=== PATIENT | female | born 1985 | race African-American/Black ===

== ENCOUNTER 2020-12-04 11:32 | Emergency (ER) | payer MEDICAID, SELFPAY ==
[2020-12-04 11:49] VITALS: BP 102/53; PULSE 79; RESP 16; TEMP 36.6; O2SAT 100
--- NOTE | 2020-12-04 12:30 | DI.US_ITS ---
EXAM: US PELVIS TRANSVAGINAL CLINICAL HISTORY: pelvic mass TECHNIQUE: Transabdominal and transvaginal imaging was performed using standard protocol. COMPARISON: No exams were available for comparison FINDINGS: KIDNEYS: Kidneys are symmetric in size. No evidence of renal calculi. No evidence of hydronephrosis. No renal mass or cyst identified. UTERUS: Retroverted. 13.4 by 10.8 by 10.9 cm.. Endometrium: 11 millimeters. Homogeneous. Myometrium: Large fibroid at the fundus measuring 10.7 x 9.3 x 10.9 cm. It contains vascularity. Sm all lower uterine segment fibroids are seen, both anteriorly and posteriorly. The anterior fibroid m easures 1.5 cm in greatest dimension. The posterior fibroid measures 2.6 cm in greatest dimension. Cervix: Unremarkable. OVARIES: Right: Cyst or mass: None. Left: Cyst or mass: None. DOPPLER: Color: Symmetric and uniform flow to both ovaries. No hyperemia. Duplex: Normal ovarian arterial waveforms visualized. CUL-DE-SAC: Free fluid: None. IMPRESSION: Large fundal fibroid, measuring nearly 11 cm in diameter.. Unremarkable bilateral ovaries. DATA REPOSITORY:
[2020-12-04 12:47] LABS: Abs Immature Grans 0.01 10^3/uL (0.0-0.06); Absolute Basophil Count 0.03 10^3/uL (0.0-0.2); Absolute Eosinophil Count 0.12 10^3/uL (0.0-0.7); Absolute Lymphocyte Count 1.67 10^3/uL (1.2-3.4); Absolute Neutrophil Count 1.32 10^3/uL (1.2-6.7); Basophils % 0.8; Eosinophils % 3.4; HCT 36.5 % (36.0-46.0); HGB 12.2 g/dL (11.2-15.7); Immature Grans % 0.3; MCH 30.8 pg (27.0-33.0); MCHC 33.4 % (32.0-36.0); MCV 92.2 fL (80-95); MPV 9.7 fL (8.0-11.0); Monocytes % 11.3; Neutrophils % 37.2; Nucleated RBC 0 %; Platelet Count 256 10^3/uL (130-400); RBC 3.96 10^6/uL (3.93-5.22); RDW 11.7 % (11.7-14.6); RDW-SD 39.9 fL; WBC 3.55 10^3/uL (4.4-10.8)
[2020-12-04 13:04] LABS: Bilirubin Negative (Negative); Blood Negative (Negative); Clarity Clear (Clear); Glucose Negative (Negative); Ketones Negative (Negative); Leukocyte Esterase Negative (Negative); Nitrite Negative (Negative); Specific Gravity >= 1.030 (1.005-1.025); Urobilinogen 0.2 EU/dL (Up TO 0.2)
[2020-12-04 13:07] LABS: ALT 26 U/L (14-59); AST 21 U/L (15-37); Albumin 3.6 g/dL (3.4-5.0); Alkaline Phosphatase 48 U/L (46-116); Anion Gap 6.4 mmol/L (3-11); BUN 13 mg/dL (7-18); Bilirubin, Total 0.5 mg/dL (0.2-1.0); CO2 29.6 mmol/L (21.0-32.0); CREATININE 0.8 mg/dL (0.55-1.02); Calcium 8.8 mg/dL (8.5-10.1); Chloride 104 mmol/L (98-107); Glucose 113 mg/dL (74-106); Potassium 4.1 mmol/L (3.5-5.1); Sodium 140 mmol/L (136-145); Total Protein 7.5 g/dL (6.4-8.2)
--- NOTE | 2020-12-04 14:46 | W.ED.GENAD ---
Discharge Plan Disposition Patient Disposition: HOME Condition: Good Discharge Details Clinical Impression: Fibroid, uterine Primary Care Provider: TARA SALAS ED Provider: Malka Orr Home Meds and New Rx's Prescriptions: No Action No Known Home Meds RF: 0 Discharge Instructions Additional Instructions: Please follow-up with the crisis manager listed You will be contacted to set up an appointment for primary care physician as well You have a large uterine fibroid, the crisis manager will give you options about management Ibuprofen and Tylenol for pain control Please return earlier should you have new or worsening complaints Referrals: Madeleine Benites DO [OSTEOPATHIC DOCTOR] - Discharge Data Discharge Date/Time-TO BE ENTERED AT DEPARTURE: 12/04/20 15:22 Medical Decision Making Ultrasound findings per radiology show evidence of fibroid tumors Patient made aware of need for follow-up with gynecology and given referral Ibuprofen and Tylenol for pain Negative test, diagnostic labs and urinalysis reassuring Given low threshold to return should she have new or worsening complaints Differential Diagnosis Differential Diagnosis: Fibroid uterus, ovarian tumor malignant, , UTI Medical Records Medical records reviewed: Yes I reviewed the patient's medical records. Lab Data Lab results reviewed: Yes I reviewed the patient's lab results. HPI This 35-year-old female presents with report of large mass in her uterus. She denies any abdominal pain currently, nausea, vomiting, dizziness. She denies any urinary symptoms. Denies any risk of sexually transmitted disease. Has not been sexually active for the past 3 years reportedly. Denies any additional complaints at this time. General Date/Time Provider Initiated Documentation: 12/04/20 12:22. Related Data Home Medications Medication Instructions Recorded Confirmed Unknown [No Known Home Meds] 12/04/20 12/04/20 Allergies Allergy/AdvReac Type Severity Reaction Status Date / Time No Known Allergies Allergy Unverified 12/04/20 11:48 General Stated Complaint: Abd Prob ABHIJIT: 3 Review of Systems Narrative: Review of systems negative x7 aside from where indicated in HPI PFSH Social History Smoking/Tobacco Use Status: Never Smoking risk assessment performed?: Yes Alcohol Intake: current Alcohol Intake frequency: a few times a week Details: CBD oil orally daily Do you feel safe at home: Yes Do you feel safe in your relationship?: Yes Exam Const Orientation: alert and oriented x3 HENMT Mouth: oral mucosae normal GI Other: Mass palpated in pelvic region, no visible erythema or rashes, no CVA tenderness No rebound or guarding Skin General skin exam: no rashes or lesions noted Neuro General: patient alert and patient oriented x3 Course Vital Signs Vital signs: Vital Signs Temperature 36.6 C 12/04/20 11:49 Pulse 79 12/04/20 11:49 Respiratory Rate 16 12/04/20 11:49 Blood Pressure 102/53 L 12/04/20 11:49 Pulse Oximetry 100 12/04/20 11:49 Temperature 36.6 C 12/04/20 11:49 Temperature Source Temporal Artery Scan 12/04/20 11:49 Pulse 79 12/04/20 11:49 Respiratory Rate 16 12/04/20 11:49 Respiratory Effort Non-Labored 12/04/20 11:53 Blood Pressure 102/53 L 12/04/20 11:49 Blood Pressure Position Sitting 12/04/20 11:49 Pulse Oximetry 100 12/04/20 11:49 Oxygen Delivery Method Room Air 12/04/20 11:49 Oxygen Flow Rate 0 12/04/20 11:49 Pain Level 5 12/04/20 11:55 Lab/Test Results Lab/Test Results: Laboratory Tests Range/Units 12/04/20 12/04/20 12/04/20 12:40 12:40 12:45 WBC (4.4-10.8) 10^3/uL 3.55 L RBC (3.93-5.22) 10^6/uL 3.96 Hgb (11.2-15.7) g/dL 12.2 Hct (36.0-46.0) % 36.5 MCV (80-95) fL 92.2 MCH (27.0-33.0) pg 30.8 MCHC (32.0-36.0) % 33.4 RDW (11.7-14.6) % 11.7 Plt Count (130-400) 10^3/uL 256 MPV (8.0-11.0) fL 9.7 Immature Gran % 0.3 Neutrophils % 37.2 Lymphocytes % 47.0 Monocytes % 11.3 Eosinophils % 3.4 Basophils % 0.8 Nucleated RBC % % 0 Absolute Neutrophils (1.2-6.7) 10^3/uL 1.32 Absolute Lymphocytes (1.2-3.4) 10^3/uL 1.67 Absolute Monocytes (0.1-0.8) 10^3/uL 0.40 Absolute Eosinophils (0.0-0.7) 10^3/uL 0.12 Absolute Basophils (0.0-0.2) 10^3/uL 0.03 Sodium (136-145) mmol/L 140 Potassium (3.5-5.1) mmol/L 4.1 Chloride (98-107) mmol/L 104 Carbon Dioxide (21.0-32.0) mmol/L 29.6 Anion Gap (3-11) mmol/L 6.4 BUN (7-18) mg/dL 13 Creatinine (0.55-1.02) mg/dL 0.8 Estimated GFR/1.73 m2 (mL/min/1.73m2) >= 60.00 Glucose (74-106) mg/dL 113 H Calcium (8.5-10.1) mg/dL 8.8 Total Bilirubin (0.2-1.0) mg/dL 0.5 AST (15-37) U/L 21 ALT (14-59) U/L 26 Alkaline Phosphatase (46-116) U/L 48 Total Protein (6.4-8.2) g/dL 7.5 Albumin (3.4-5.0) g/dL 3.6 Urine Color (Yellow) Yellow Urine Clarity (Clear) Clear Urine pH (5-8) 7.0 Ur Specific [place] (1.005-1.025) >= 1.030 H Urine Protein (Negative) mg/dL Negative Urine Ketones (Negative) mg/dL Negative Urine Blood (Negative) Negative Urine Nitrite (Negative) Negative Urine Bilirubin (Negative) Negative Urine Urobilinogen (Up TO 0.2) EU/dL 0.2 Ur Leukocyte Esterase (Negative) Negative Urine Glucose (Negative) mg/dL Negative POC- Test(urine) Negative
[2020-12-04 15:23] VITALS: BP 102/53; PULSE 79; RESP 16; TEMP 36.6; O2SAT 100
--- NOTE | 2020-12-05 10:51 | PDOC.ERCMPRO ---
- If Service Date Differs Date of service: 12/05/20 Time of Service: 10:51 Care Management Progress Note Ronit is seen in the ED for uterine fibroids. ED provider requests that CM assist patient in establishing care with a PCP, but a review of her chart reveals that Ronit is already established at [facility] with MAIKEL Del Valle. CM contacts the [facility] to ensure patient is still an active patient at their facility and is informed that she is active and already has a follow up appointment scheduled.
== END 2020-12-04 15:22 | disposition home or self-care (01) ==
PROVIDERS: Emergency Provider Physician Assistant; PCP Registered Nurse
DX: R19.03 Right lower quadrant abdominal swelling, mass and lump (principal); D25.9 Leiomyoma of uterus, unspecified
CPT/HCPCS: 36415; 80053; 81025; 99284; 76830; 76856; 81003; 85025; 99283

== ENCOUNTER 2021-09-21 16:20 | Emergency (ER) | payer MEDICAID, SELFPAY ==
--- NOTE | 2021-09-21 16:15 | RT.EKG_ITS ---
APPROVED REPORT Exam: Resting ECG Reason for Exam: CHEST PAIN Patient Location: E HR:68 bpm ECG Measurements Heart Rate 68 AXIS NC 156 P 30 QRSd 76 QRS 22 QT 373 T 21 QTc 397 Conclusion Sinus rhythm...normal P axis, V-rate 60- 99
[2021-09-21 16:24] VITALS: BP 97/77; PULSE 74; RESP 16; TEMP 36.7; O2SAT 99
--- NOTE | 2021-09-21 16:30 | DI.CT_ITS ---
Exam(s) CT CERVICAL SPINE WO EXAM: CT CERVICAL SPINE WO CLINICAL HISTORY: Neck pain with radiculopathy. TECHNIQUE: Imaging Protocol: Axial computed tomography images with coronal and sagittal reformatted images were created and reviewed COMPARISON: No exams were available for comparison FINDINGS: CERVICAL SPINE: There is no evidence of fracture nor listhesis. No significant prevertebral soft tissue swelling. Mild disc space narrowing and anterior osteophytes noted at C5-6 level. There is no significant facet joint malalignment. No significant osseous lesions evident. IMPRESSION: No evidence of cervical spine fracture, malalignment, nor acute compromise of the cervical spinal can al. RADIATION DOSE DELIVERED: 500.79mGy.cm Total DLP DATA REPOSITORY: All CT scans at this facility are submitted to the National Radiology Data Registry (NRDR) Dose Index Registry (DIR) with the [employer] ([employer]). RADIATION OPTIMIZATION: All CT scans at this facility use at least one of these dose optimization te chniques: automated exposure control; mA and/or kV adjustment per patient size (includes targeted exa ms where dose is matched to clinical indication); or iterative reconstruction.
--- NOTE | 2021-09-21 16:30 | DI.CT_ITS ---
Exam(s) CT THORACIC LUMBAR SPINE WO EXAM: CT THORACIC LUMBAR SPINE WO CLINICAL HISTORY: Back Pain. TECHNIQUE: Imaging Protocol: Axial computed tomography images with coronal and sagittal reformatted images were created and reviewed. CONTRAST MATERIAL: Intravenous: Omnipaque 350 Contrast volume:structured data in ml Contrast route:I V - Oral: yes / no COMPARISON: No exams were available for comparison FINDINGS: THORACIC SPINAL COLUMN: No fractures. No listhesis. No osseous lesions. No facet malalignment. No scoliosis. LUMBOSACRAL SPINAL COLUMN: No evidence of fracture or listhesis. No pars defects. No disc space marianna rowing. Bone density normal. No osseous lesions. Mild-moderate facet arthropathy is noted at L5-S1 level. No significant central spinal canal stenosis. No significant foraminal stenosis. IMPRESSION: No fractures evident in the thoracic and lumbar spinal columns. No facet malalignment. No listhesis . RADIATION DOSE DELIVERED: 735.26mGy.cm Total DLP DATA REPOSITORY: All CT scans at this facility are submitted to the National Radiology Data Registry (NRDR) Dose Index Registry (DIR) with the [employer] (ACR). RADIATION OPTIMIZATION: All CT scans at this facility use at least one of these dose optimization te chniques: automated exposure control; mA and/or kV adjustment per patient size (includes targeted exa ms where dose is matched to clinical indication); or iterative reconstruction.
[2021-09-21 16:36] VITALS: RESP 16
--- NOTE | 2021-09-21 16:40 | W.ED.GENAD ---
Discharge Plan Disposition Patient Disposition: HOME Condition: Stable Discharge Details Clinical Impression: Sprain of cervical neck, Acute costochondritis Primary Care Provider: Donna Luna ED Provider: Natalie Baron Home Meds and New Rx's Prescriptions: New cyclobenzaprine 10 mg tablet 10 mg PO TID PRN (Reason: muscle spasm) Qty: 10 RF: 0 No Action ibuprofen [IBU] 800 mg tablet 800 mg PO Q8H PRN (Reason: pain) Qty: 30 RF: 1 Discharge Instructions Instructions: Costochondritis (ED), Cervical Sprain (ED) Additional Instructions: Today the EKG shows no acute abnormality of your heart. CT of your neck, thoracic and lumbar spine are all within normal limits. You do have some degenerative changes on T9 and 10, you also have some lumbar degenerative changes at L4 and L5. There does not appear that you have any evidence for spinal canal stenosis. Alternate ice and heat. Take the muscle relaxers up to 3 times daily as needed. A prescription was for muscle relaxers to the pharmacy we have on file for you. Please take Tylenol or Ibuprofen with food every 4-6 hours as needed for pain and swelling. Follow up with primary care provider in 3-5 days. Return to ED sooner if any worsening or concerns. Increase oral fluids. Stand Alone Forms: Work Release Referrals: Donna Luna, [employer] [Primary Care Provider] - 3 days Medical Decision Making 36-year-old female presents to the ER with chief complaint of neck and back pain after some heavy lifting yesterday. Patient states that she is moving and was doing some heavy lifting up 2 flights of stairs. She reports arm and hand numbness this morning which has resolved. She has increased pain with flexion of her neck and rotation. She denies any loss of bowel or bladder control. She is also complaining of anterior chest pain and feels like there is a knot in my throat. She denies any fever or cough. She is vaccinated for COVID. She did take some ibuprofen at approximately 12:00 this afternoon which did little to nothing to help her symptoms. She is tearful. Past medical history includes uterine fibroid. EKG shows normal sinus rhythm. EKG was reviewed by Dr. Emmanuel ER attending, Discussed CT results with patient who verbalized understanding. Patient reevaluation, she reports that she still having pain. She is concerned about her throat pain. Did offer a rapid strep swab which she agreed to due to the erythema of her posterior oropharynx. Discussed home care including alternating ice and heat, we will give her lidocaine patch and I will send her with some muscle relaxers to go home with. She verbalizes understanding. Exam: CT Cervical Spine Without Contrast FINDINGS: Bones/joints: No acute fracture. Normal alignment. Discs/Spinal canal/Neural foramina: Endplate osteophyte formation and disc space narrowing at C5-C6. Lungs: Lung apices are normal. Soft tissues: Unremarkable. IMPRESSION: No acute findings Exam: CT Thoracic Spine Without Contrast FINDINGS: Vertebrae: No acute fracture. Normal alignment. Diminutive ribs at T12. Degenerative arthritis in the right costovertebral junction of T9 and T10. Discs/Spinal canal/Neural foramina: No significant disc protrusion. No severe spinal canal stenosis. No significant neural foraminal narrowing. Soft tissues: Unremarkable. IMPRESSION: No acute findings Exam: CT Lumbar Spine Without Contrast COMPARISON: CT CERVICAL SPINE WO 09/21/2021 5:12 PM FINDINGS: Vertebrae: No acute fracture. Normal alignment. Four lumbar type vertebral bodies. L5 is sacralized. Moderate facet arthropathy at L4-L5, worse on left. Discs/Spinal canal/Neural foramina: No significant disc protrusion. No severe spinal canal stenosis. No significant neural foraminal narrowing. Soft tissues: Unremarkable. IMPRESSION: No acute findings. Degenerate arthritis lower lumbar facets. Four lumbar type vertebral bodies. Rapid strep negative. Patient sent home with Flexeril and was given a lidocaine patch prior to discharge. Instructed on home care. This text was generated using Omnidroneation system, please disregard any oddities of phrase or misspellings. HPI General Mode of arrival: ambulatory. Date/Time Provider Initiated Documentation: 09/21/21 16:20. Limitations to Documentation: no limitations. Information obtained by: patient, RN notes reviewed and old records reviewed. HPI Narrative: 36-year-old female presents to the ER with chief complaint of neck and back pain after some heavy lifting yesterday. Patient states that she is moving and was doing some heavy lifting up 2 flights of stairs. She reports arm and hand numbness this morning which has resolved. She has increased pain with flexion of her neck and rotation. She denies any loss of bowel or bladder control. She is also complaining of anterior chest pain and feels like there is a knot in my throat. She denies any fever or cough. She is vaccinated for COVID. She did take some ibuprofen at approximately 12:00 this afternoon which did little to nothing to help her symptoms. She is tearful. Past medical history includes uterine fibroid. Related Data Home Medications Medication Instructions Recorded Confirmed ibuprofen 800 mg tablet 800 mg PO Q8H PRN #30 tab 12/20/20 09/21/21 cyclobenzaprine 10 mg PO TID PRN #10 tab 09/21/21 Previous Rx's Medication Instructions Recorded ibuprofen 800 mg tablet 800 mg PO Q8H PRN #30 tab 12/20/20 cyclobenzaprine 10 mg PO TID PRN #10 tab 09/21/21 Allergies Allergy/AdvReac Type Severity Reaction Status Date / Time No Known Allergies Allergy Unverified 09/21/21 16:29 General Stated Complaint: GenMedical ABHIJIT: 4 Review of Systems All systems reviewed & are unremarkable except as noted in HPI and below PFSH All Active Problems (Updated 09/21/21 @ 18:14 by Natalie Baron) Fibroid, uterine (Acute) Sprain of cervical neck (Acute) Acute costochondritis (Acute) Social History Smoking/Tobacco Use Status: Former Tobacco Use Smoking risk assessment performed?: Yes Alcohol Intake: current Alcohol Intake frequency: a few times a week Drug use: Daily Substance use type: marijuana Details: CBD oil orally daily Do you feel safe at home: Yes Do you feel safe in your relationship?: Yes Female Reproductive History Menstrual Age of Menarche: 14 Duration of menses: 6-7 days control method: none History History 1 Para 1 Hx # Term Pregnancies 1 Multiple births Hx # Pregnancies Ectopic pregnancies AB induced Hx Number of Living Children 1 AB spontaneous Exam Narrative Exam Narrative: Constitutional: Alert and oriented x3. Appears stated age. Normal body habitus. Head: Normocephalic, no trauma. Eyes: Pupils PERRL, Red reflex noted, EOM's intact. Eyelids symmetrical without lesions, discharge, or swelling. ENT: Bilateral TM's WNL, External ear normal to inspection, no mastoid TTP, swelling, or erythema, Nasal turbinates WNL, no nasal discharge. Normal dentition, Posterior pharynx erythemic, no exudate. Chest: RRR, Normal S1, S2, distal pulses intact. Resp: Lungs clear to auscultation bilaterally, no wheezes, rales, or rhonchi. Abdomen: Soft, non-distended, Normoactive bowel sounds all 4 quads. Musculoskeletal: Normal gait, 5/5 strength to all four extremities. Midline C-spine tenderness with palpation, midline T-spine tenderness with palpation. She reports that she has a bulging disc in her lower lumbar spine. Skin: No suspicious rashes or lesions. Capillary refill less than 2 sec. Neurologic: Cranial nerves II-XII intact. Alert and oriented x 3. Motor: No deficits noted. Sensory: Intact bilaterally all 4 extremities. Reflexes: DTR's intact bilaterally.. Hematologic/Lymphatic: No ecchymosis, no lymphadenopathy. Course Vital Signs Vital signs: Vital Signs Temperature 36.7 C 09/21/21 16:24 Pulse 74 09/21/21 16:24 Respiratory Rate 16 09/21/21 16:24 Blood Pressure 97/77 L 09/21/21 16:24 Pulse Oximetry 99 09/21/21 16:24 Temperature 36.7 C 09/21/21 16:24 Temperature Source Skin 09/21/21 16:24 Pulse 74 09/21/21 16:24 Respiratory Rate 16 09/21/21 16:24 Respiratory Effort 09/21/21 16:30 Blood Pressure 97/77 L 09/21/21 16:24 Pulse Oximetry 99 09/21/21 16:24 Oxygen Delivery Method Room Air 09/21/21 16:24 Oxygen Flow Rate 0 09/21/21 16:24 Pain Level 10 09/21/21 16:24 PAWSS Have you Been Recently Intoxicated or Drunk Within the Last 30 days?: No Have you Ever Experienced Previous Episodes of Alcohol Withdrawal?: No Have you ever Experienced Withdrawal Seizures?: No Have you ever Experienced Delirium Tremens(DT)s?: No Have you ever undergone Alcohol Rehabilitation Treatment (i.e, inpt ot outpatient treatment programs)?: No Have you ever Experienced Blackouts?: No Have you ever Combined Alcohol with other Downers within the last 90 days?: No Have you ever Combined Alcohol with any other Substance of Abuse during the last 90 days?: No Evidence of Increased Autonomic Activity (i.e. HR>120, tremor, sweating, agitation, nausea)?: No Result: 0
[2021-09-21] MEDS: predniSONE 20 MG TAB 60 MG PO (16:43)
[2021-09-21] MEDS: diazePAM 2 MG TAB PO (16:44)
[2021-09-21] MEDS: Ibuprofen 600 MG TAB PO (16:44)
[2021-09-21 17:03] LABS: Bilirubin Negative (Negative); Blood Negative (Negative); Clarity Clear (Clear); Glucose Negative (Negative); Ketones 15 mg/dL (Negative); Leukocyte Esterase Negative (Negative); Nitrite Negative (Negative); Specific Gravity >= 1.030 (1.005-1.025); Urobilinogen 0.2 EU/dL (Up TO 0.2); pH 6.5 (5-8)
--- NOTE | 2021-09-21 17:32 | DI.VRAD_ITS ---
PROCEDURE INFORMATION: Exam: CT Cervical Spine Without Contrast Exam date and time: 09/21/2021 4:41 PM Age: 36 years old Clinical indication: Other: Neck pain with radiculopathy TECHNIQUE: Imaging protocol: Computed tomography images of the cervical spine without contrast. Radiation optimization: All CT scans at this facility use at least one of these dose optimization techniques: automated exposure control; mA and/or kV adjustment per patient size (includes targeted exams where dose is matched to clinical indication); or iterative reconstruction. COMPARISON: No relevant prior studies available. FINDINGS: Bones/joints: No acute fracture. Normal alignment. Discs/Spinal canal/Neural foramina: Endplate osteophyte formation and disc space narrowing at C5-C6. Lungs: Lung apices are normal. Soft tissues: Unremarkable. IMPRESSION: No acute findings Dictated and Authenticated by: Rhiannon Marrufo MD. Ordering:ANA LUISA Estrada MD
--- NOTE | 2021-09-21 17:40 | DI.VRAD_ITS ---
PROCEDURE INFORMATION: Exam: CT Thoracic Spine Without Contrast Exam date and time: 09/21/2021 4:41 PM Age: 36 years old Clinical indication: Other: Back pain TECHNIQUE: Imaging protocol: Computed tomography images of the thoracic spine without contrast. Radiation optimization: All CT scans at this facility use at least one of these dose optimization techniques: automated exposure control; mA and/or kV adjustment per patient size (includes targeted exams where dose is matched to clinical indication); or iterative reconstruction. COMPARISON: CT CERVICAL SPINE WO 09/21/2021 5:12 PM FINDINGS: Vertebrae: No acute fracture. Normal alignment. Diminutive ribs at T12. Degenerative arthritis in the right costovertebral junction of T9 and T10. Discs/Spinal canal/Neural foramina: No significant disc protrusion. No severe spinal canal stenosis. No significant neural foraminal narrowing. Soft tissues: Unremarkable. IMPRESSION: No acute findings PROCEDURE INFORMATION: Exam: CT Lumbar Spine Without Contrast Exam date and time: 09/21/2021 4:41 PM Age: 36 years old Clinical indication: Other: Back pain TECHNIQUE: Imaging protocol: Computed tomography images of the lumbar spine without contrast. Radiation optimization: All CT scans at this facility use at least one of these dose optimization techniques: automated exposure control; mA and/or kV adjustment per patient size (includes targeted exams where dose is matched to clinical indication); or iterative reconstruction. COMPARISON: CT CERVICAL SPINE WO 09/21/2021 5:12 PM FINDINGS: Vertebrae: No acute fracture. Normal alignment. Four lumbar type vertebral bodies. L5 is sacralized. Moderate facet arthropathy at L4-L5, worse on left. Discs/Spinal canal/Neural foramina: No significant disc protrusion. No severe spinal canal stenosis. No significant neural foraminal narrowing. Soft tissues: Unremarkable. IMPRESSION: No acute findings. Degenerate arthritis lower lumbar facets. Four lumbar type vertebral bodies. Dictated and Authenticated by: Rhiannon Marrufo MD. Ordering:ANA LUISA Estrada MD
[2021-09-21] MEDS: Lidocaine 5% Patch 1 PATCH TP (18:12)
[2021-09-21] MEDS: Cyclobenzaprine 10 MG TAB, 3 TABS/BTL PO (18:13)
[2021-09-21 18:34] VITALS: BP 102/62; PULSE 68; RESP 16; TEMP 36.7; O2SAT 99
== END 2021-09-21 18:36 | disposition home or self-care (01) ==
PROVIDERS: Emergency Provider Registered Nurse Emergency; PCP Registered Nurse
DX: S13.4XXA Sprain of ligaments of cervical spine, initial encounter (principal); X50.0XXA Overexertion from strenuous movement or load, initial encounter; R20.0 Anesthesia of skin; M54.9 Dorsalgia, unspecified; R07.9 Chest pain, unspecified; M94.0 Chondrocostal junction syndrome [Tietze]; J02.9 Acute pharyngitis, unspecified
CPT/HCPCS: 81025; 87880; 93005; 99285; 72125; 72128; 72131; 81003; 87081; 93010; 99284; J7512

== ENCOUNTER 2022-03-06 17:29 | Emergency (ER) | payer MEDICAID, SELFPAY ==
[2022-03-06 17:33] VITALS: BP 112/72; PULSE 66; RESP 18; TEMP 36.8; O2SAT 99
[2022-03-06] MEDS: diazePAM 10 MG/2 ML SYR 2.5 MG IVP (18:47)
[2022-03-06] MEDS: Dexamethasone 10 MG/ML VIAL IVP (18:47)
[2022-03-06] MEDS: Ketorolac 30 MG/ML VIAL IVP (18:48)
--- NOTE | 2022-03-06 19:00 | DI.RAD_ITS ---
Exam(s) XR LUMBAR SPINE COMPLETE EXAM: XR LUMBAR SPINE COMPLETE CLINICAL HISTORY: severe back pain. TECHNIQUE: 2D digital imaging was performed of the lumbar spine. Five images were obtained. AP, la teral, right oblique, left oblique and L5-S1 spot views were obtained. COMPARISON: No exams were available for comparison FINDINGS: BONES: No fracture or destructive lesion. Vertebral bodies are unremarkable. No facet hypertrophy tahira ntified. DISKS: Intervertebral disc spaces are maintained. ALIGNMENT: Lumbar spinal alignment is within normal limits. No spondylolysis or spondylolisthesis. SOFT TISSUE: Normal. IMPRESSION: Unremarkable radiographs of the lumbar spine. DATA REPOSITORY: RADIATION DOSE DELIVERED:
--- NOTE | 2022-03-06 19:00 | DI.RAD_ITS ---
Exam(s) XR THORACIC SPINE COMPLETE EXAM: XR THORACIC SPINE COMPLETE CLINICAL HISTORY: severe back pain. TECHNIQUE: 2D digital imaging was performed of the thoracic spine. Two views were obtained. AP and lateral views were obtained. COMPARISON: No exams were available for comparison FINDINGS: BONES: There is no fracture or destructive lesion. The vertebral bodies and posterior elements are un remarkable. DISKS:Alignment is within normal limits. Interverebral disc spaces are maintained. SOFT TISSUE: Visualized lungs are clear. IMPRESSION: Unremarkable radiographs of the thoracic spine. DATA REPOSITORY: RADIATION DOSE DELIVERED:
--- NOTE | 2022-03-06 19:00 | DI.RAD_ITS ---
Exam(s) XR CERVICAL SPINE COMP 4-5V EXAM: XR CERVICAL SPINE COMP 4-5V CLINICAL HISTORY: severe neck pain. TECHNIQUE: 2D digital imaging was performed. Five images were obtained. AP, odontoid, lateral and bi lateral oblique images were obtained. COMPARISON: No exams were available for comparison FINDINGS: The odontoid is intact. The lateral masses are well aligned. There is normal alignment of the cervi reno spine. The vertebral bodies, disc spaces and posterior elements are well maintained. No acute f racture or subluxation is present. No significant neural foraminal stenosis is present. The cervical thoracic junction is well maintained. The prevertebral soft tissues are unremarkable. Lung apices a re clear. IMPRESSION: No acute fracture or subluxation. DATA REPOSITORY: RADIATION DOSE DELIVERED:
--- NOTE | 2022-03-06 20:11 | DI.VRAD_ITS ---
PROCEDURE INFORMATION: Exam: XR Spine; Cervical Exam date and time: 03/06/2022 7:28 PM Age: 36 years old Clinical indication: Other: Severe neck pain TECHNIQUE: Imaging protocol: XR of the spine. Exam focused on the cervical spine. Views: 1 view. COMPARISON: CT CERVICAL SPINE WO 09/21/2021 5:12 PM FINDINGS: Bones/joints: Normal. No acute fracture. Normal alignment. Soft tissues: Normal. IMPRESSION: No acute findings. Dictated and Authenticated by: Gary Choudhury MD. Ordering:JAMES Aguiar MD
--- NOTE | 2022-03-06 20:14 | DI.VRAD_ITS ---
PROCEDURE INFORMATION: Exam: XR Thoracic Spine Exam date and time: 03/06/2022 7:36 PM Age: 36 years old Clinical indication: Condition or disease; Other: Severe back pain TECHNIQUE: Imaging protocol: Radiologic exam of the thoracic spine. Views: 3 views. COMPARISON: CT THORACIC LUMBAR SPINE WO 09/21/2021 5:16 PM FINDINGS: Bones/joints: Normal. No acute fracture. Normal alignment. Soft tissues: Unremarkable. IMPRESSION: No acute findings. Dictated and Authenticated by: Gary Choudhury MD. Ordering:JAMES Aguiar MD
--- NOTE | 2022-03-06 20:15 | DI.VRAD_ITS ---
PROCEDURE INFORMATION: Exam: XR Lumbosacral Spine Exam date and time: 03/06/2022 7:37 PM Age: 36 years old Clinical indication: Other: Severe back pain TECHNIQUE: Imaging protocol: Radiologic exam of the lumbosacral spine. Views: 4 or 5 views. COMPARISON: CT THORACIC LUMBAR SPINE WO 09/21/2021 5:16 PM FINDINGS: Bones/joints: Normal. No acute fracture. Normal alignment. Soft tissues: Unremarkable. IMPRESSION: No acute findings. Dictated and Authenticated by: Gary Choudhury MD. Ordering:JAMES Aguiar MD
--- NOTE | 2022-03-06 20:45 | ED.GENADUL_ITS ---
Discharge Plan Disposition Patient Disposition: HOME Condition: Improving Discharge Details Clinical Impression: Cervical muscle strain, Back pain Primary Care Provider: Otilia Rolon ED Provider: Cosme Mata Home Meds and New Rx's Prescriptions: New cyclobenzaprine 10 mg tablet 10 mg PO TID PRN (Reason: muscle spasm) Qty: 20 0RF diclofenac potassium 50 mg tablet 50 mg PO TID PRN (Reason: pain) Qty: 15 0RF Discontinued ibuprofen [IBU] 800 mg tablet 800 mg PO Q8H PRN (Reason: pain) Qty: 30 1RF cyclobenzaprine 10 mg tablet 10 mg PO TID PRN (Reason: muscle spasm) Qty: 10 0RF Discharge Instructions Instructions: Cervical Strain (ED), Back Pain (ED) Additional Instructions: Please do not take any further NSAIDs which include ibuprofen, aspirin, or Aleve while on prescribed medication for pain. You may continue to take james taminophen as directed on back of packaging. If you have any new or worsening symptoms feel free to return the emergency department for reassessment otherwise follow-up with primary care provider next week. Referrals: Otilia Rolon, KAVITHA [Primary Care Provider] - 1 week Discharge Data Discharge Date/Time-TO BE ENTERED AT DEPARTURE: 03/06/22 21:19 Medical Decision Making Patient presenting to the emergency department for chief complaint of back pain. Patient injured her back in August which has continued to bother her since that episode but today while severe discomfort is better than that initial visit. She states that initial visit was with heavy lifting. 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 Physical exam is difficult to obtain due to any palpation of the back or paraspinal tissue elicits significant pain but does not completely appear consistent with patient's general appearance at rest. DTRs are intact for both upper and lower extremities, normal sensation, LOW risk for ABDOMINAL AORTIC ANEURYSM, CAUDA EQUINA SYNDROME, EPIDURAL MASS LESION, SPINAL STENOSIS, OR HERNIATED DISK CAUSING SEVERE STENOSIS. Reviewed CT imaging from previous visit which was overall unremarkable except for some minor findings. We will repeat plain film imaging of the back but I suspect more muscular strain. Pending x-ray results we will give patient Toradol,, and Decadron. Reviewed radiological imaging along with radiologist interpretation which shows no acute findings for cervical, thoracic, and lumbar spine. Reassessed patient patient did state improvement of symptoms. Will prescribe patient Flexeril and diclofenac prior. If patient does become continues I do feel that consideration of MRI imaging may be necessary but at this time I see no obvious emergent findings to warrant transfer to tertiary care center or admission. After discussion of diagnosis and plan of care patient has no further needs, questions, or concerns and states clear understanding to return to the emergency department for any worsening symptoms. This documentation was generated using [employer] dictation system, please disregard any oddities of phrase or misspellings. HPI General Mode of arrival: ambulatory . Date/Time Provider Initiated Documentation: 03/06/22 17:37 . Limitations to Documentation: no limitations . Information obtained by: patient, RN notes reviewed and old records reviewed . History of Present Illness 36 year old F presents to the emergency department with the chief complaint of back pain, described as severe and similar to prior episodes, with intensity rated at 10. Quality is described as sharp, and is localized to the neck and back. Patient extremity. Patient started experiencing this month(s) (6) and it has been constant and intermittent. No relieving factors improve symptom(s), Movement worsens symptoms . Patient notes denies fever/chills, headaches, shortness of breath and weakness. Patient did receive the following treatments prior to arrival, none Related Data Home Medications Medication Instructions Recorded Confirmed cyclobenzaprine 10 mg tablet 10 mg PO TID PRN muscle spasm #20 03/06/22 tabs diclofenac potassium 50 mg tablet 50 mg PO TID PRN pain #15 tabs 03/06/22 Previous Rx's Medication Instructions Recorded cyclobenzaprine 10 mg tablet 10 mg PO TID PRN muscle spasm #20 03/06/22 tabs diclofenac potassium 50 mg tablet 50 mg PO TID PRN pain #15 tabs 03/06/22 Allergies Allergy/AdvReac Type Severity Reaction Status Date / Time No Known Allergies Allergy Unverified 03/06/22 17:36 General Stated Complaint: GenMedical ABHIJIT: 3 Review of Systems Constitutional Constitutional: Denies chills and Denies fever(s) Cardiovascular Cardiovascular: Denies chest pain and Denies dyspnea on exertion Respiratory Respiratory: Denies cough and Denies dyspnea on exertion Gastrointestinal Gastrointestinal: Denies abdominal pain, Denies change in bowel habits, Denies diarrhea, Denies nausea and Denies vomiting Genitourinary Genitourinary: Denies urinary incontinence Musculoskeletal Musculoskeletal: Reports as per HPI and Reports back pain Neurologic Neurologic: Denies sensory deficit Psychiatric Psychiatric: Reports anxiety PFSH All Active Problems (Updated 03/06/22 @ 20:59 by Cosme Mata NP) Fibroid, uterine (Acute) Cervical muscle strain (Acute) Back pain (Acute) Social History Smoking/Tobacco Use Status: Former Tobacco Use Smoking risk assessment performed?: Yes Alcohol Intake: current Alcohol Intake frequency: a few times a week Drug use: Daily Substance use type: marijuana Details: CBD oil orally daily Do you feel safe at home: Yes Do you feel safe in your relationship?: Yes Female Reproductive History Menstrual Age of Menarche: 14 Duration of menses: 6-7 days control method: none History History 1 Para 1 Hx # Term Pregnancies 1 Multiple births Hx # Pregnancies Ectopic pregnancies AB induced Hx Number of Living Children 1 AB spontaneous Exam Const General: cooperative and no acute distress Orientation: alert, awake and oriented x3 Neck Neck: normal visual inspection, full ROM and no meningeal signs Resp Effort & Inspection: normal respiratory effort Auscultation: clear to auscultation bilaterally Cardio Rate: regular rate Rhythm: regular rhythm Heart Sounds: S1 normal and S2 normal GI Palpation: no hepatosplenomegaly, no aortic enlargement, no masses and no pulsatile masses Back/Spine/Pelvis Cervical Spine: cervical ROM normal, cervical muscular tenderness and cervical spasm Thoracic/Lumbar Spine: thoraco-lumbar ROM normal, paraspinal tenderness, thoraco-lumbar spasm, thoracic spinal tenderness and lumbar spinal tenderness Neuro General: patient alert, patient awake, patient oriented x3, gait normal, moves all extremities, normal light touch, pain and propioception, no focal motor deficits and deep tendon reflexes 2+ bilaterally (Upper and lower extremity) Cognition: normal cognition Speech: speech normal Gait: normal gait Motor: muscle tone normal throughout and strength 5/5 throughout Sensory Exam: no sensory deficits noted Extrem General: normal to inspection, full ROM and capillary refill normal Course Vital Signs Vital signs: Vital Signs Temperature 36.8 C 03/06/22 17:33 Pulse 66 03/06/22 17:33 Respiratory Rate 18 03/06/22 17:33 Blood Pressure 112/72 03/06/22 17:33 Pulse Oximetry 99 03/06/22 17:33 Temperature 36.8 C 03/06/22 17:33 Temperature Source Temporal Artery Scan 03/06/22 17:33 Pulse 66 03/06/22 17:33 Respiratory Rate 18 03/06/22 17:33 Respiratory Effort Non-Labored 03/06/22 17:37 Blood Pressure 112/72 03/06/22 17:33 Blood Pressure Position Sitting 03/06/22 17:33 Pulse Oximetry 99 03/06/22 17:33 Oxygen Delivery Method Room Air 03/06/22 17:33 Oxygen Flow Rate 0 03/06/22 17:33 Lab/Test Results Lab/Test Results: POC Urine Test Start: 03/06/22 18:28 Freq: Status: Complete Protocol: Document 03/06/22 18:28 NB (Rec: 03/06/22 18:28 NB [id number]) Test(Urine)-POC POC- Test(urine) Negative POC- Test(urine) Negative
== END 2022-03-06 21:19 | disposition home or self-care (01) ==
PROVIDERS: Emergency Provider Nurse Practitioner Family; PCP Nurse Practitioner Family
DX: S16.1XXA Strain of muscle, fascia and tendon at neck level, initial encounter (principal); M54.89 Other dorsalgia; X50.0XXA Overexertion from strenuous movement or load, initial encounter
CPT/HCPCS: 81025; 96374; 96375; 99284; 72050; 72072; 72110; J1100; J1885; J3360

== ENCOUNTER 2022-12-23 13:50 | Outpatient (REF) | payer MEDICAID, SELFPAY ==
--- NOTE | 2022-12-23 13:25 | PAPFT_PTH ---
PATIENT: Ronit Torres LOC: [facility] U#:[id number] AGE/SX: 37/F ROOM: RE12/23/[address]: MAIKEL Kern : 1985 BED: DIS: 12/23/2022 SPEC #: [id number] RECD: 12/24/22 12:53 STATUS: WICHO REQ #: [id number] SHAUNA: 12/23/22 13:[address]: Otilia Rolon DEPT: [facility] Cytology RECD BY: Malka Echavarria Tissues: 1 - CX/ENDOCX FOR PAP SMEARS Procedures: PAP THIN PREP/UVM Screening HPV DNA PROBE Comments: [id number] (CHLAMYDIA/GC)
[2022-12-25 15:39] LABS: Chlamydia Result Negative (Negative); GC Result Negative (Negative)
== END 2022-12-23 13:51 | disposition home or self-care (01) ==
LOC: LBN 13:50
PROVIDERS: PCP Nurse Practitioner Family; Visit Provider Nurse Practitioner Family
DX: Z11.51 Encounter for screening for human papillomavirus (HPV) (principal)
CPT/HCPCS: 87491; 87591; 88142; 87624

== ENCOUNTER 2023-04-09 13:12 | Emergency (ER) | payer MEDICAID, SELFPAY ==
[2023-04-09 13:14] VITALS: BP 113/79; PULSE 102; RESP 20; TEMP 36.9; O2SAT 95
[2023-04-09 14:02] LABS: Abs Immature Grans 0.02 10^3/uL (0.0-0.06); Absolute Basophil Count 0.02 10^3/uL (0.0-0.2); Absolute Eosinophil Count 0.01 10^3/uL (0.0-0.7); Absolute Lymphocyte Count 1.52 10^3/uL (1.2-3.4); Absolute Monocyte Count 0.79 10^3/uL (0.1-0.8); Absolute Neutrophil Count 3.71 10^3/uL (1.2-6.7); Basophils % 0.3; Eosinophils % 0.2; HCT 37.7 % (36.0-46.0); HGB 13.2 g/dL (11.2-15.7); Immature Grans % 0.3; MCH 30.4 pg (27.0-33.0); MCV 87 fL (80-95); MPV 9.7 fL (8.0-11.0); Neutrophils % 61.2; Platelet Count 272 10^3/uL (130-400); RBC 4.34 10^6/uL (3.93-5.22); RDW 11.3 % (11.7-14.6); RDW-SD 35.9 fL; WBC 6.07 10^3/uL (4.4-10.8)
[2023-04-09 14:26] LABS: ALT 24 U/L (14-59); AST 21 U/L (15-37); Albumin 4.6 g/dL (3.4-5.0); Alkaline Phosphatase 56 U/L (46-116); Anion Gap 13.9 mmol/L (3-11); BUN 12 mg/dL (7-18); Bilirubin, Total 1.5 mg/dL (0.2-1.0); CO2 26.1 mmol/L (21.0-32.0); CREATININE 0.8 mg/dL (0.55-1.02); Calcium 9.5 mg/dL (8.5-10.1); Chloride 101 mmol/L (98-107); Estimated GFR 98.48 (mL/min/1.73m2); Glucose 100 mg/dL (74-106); Potassium 3.7 mmol/L (3.5-5.1); Sodium 141 mmol/L (136-145); TSH (W/Ref FT4) 1.35 uIU/mL (0.36-3.74); Total Protein 8.6 g/dL (6.4-8.2)
[2023-04-09 14:28] LABS: ETHANOL BLOOD < 3.0 mg/dL (<10)
[2023-04-09 14:40] LABS: Acetaminophen < 2 ug/mL (10-30); Salicylate < 2.8 mg/dL (<2.8)
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
--- NOTE | 2023-04-09 20:13 | NUR.NOTE ---
Nursing Note: Multiple attempts to obtain urine sample unsuccessful. Bedside commode added to room to attempt to obtain sample. CPSO participating in attempts to obtain sample. Provider team aware.
[2023-04-09] MEDS: OLANZapine 10 MG TAB (22:05)
--- NOTE | 2023-04-09 22:12 | NUR.NOTE ---
Nursing Note: Pt highly restless and unable to focus. ordered PO and IM medications. This RN was able to help pt focus and pt consumed zyprexa. aware. B52 pulled and wasted.
--- NOTE | 2023-04-10 00:09 | W.EDPROG ---
Date of service: 04/10/23 Time of Service: 00:25 Medical Decision Making This patient was signed out to me. Please see previous notes for H&P and initial eval. In brief, 37yo F hx of prior psychosis presenting today with acute psychosis, delusions, reportedly walking naked down the road. Medically cleared, EE paperwork sent. Awaiting 2nd cert. Resting at start of shift. At approximately 0330 ran from room and attempted to elope for the department; brought back by security. Subsequently pacing in the room; offered 10mg of PO zyprexa which she accepted. Would likely benefit from standing treatment; placed on 5mg PO zyprexa BID with 0.5mg ativan available prn. No further events overnight. Given QT prolonging medications, plan for EKG when awake and cooperative. Signed out to oncoming physician, 2nd cert pending. Sign Out Sign Out Data: Sign Out Comment: Patient pending urinalysis and psychiatric bed placement otherwise patient is medically clear and I do not feel that findings of urinalysis are a potential cause for her delusions. Last updated by Cosme Mtaa, KAVITHA at 04/09/23 15:35 Discharge Plan Discharge Details Chief Complaint: PsychEval Clinical Impression: Delusions Primary Care Provider: Otilia Rolon ED Provider: Greta Moore Home Meds and New Rx's Prescriptions: No Action No Known Home Meds
--- NOTE | 2023-04-10 03:30 | RT.EKG_ITS ---
APPROVED REPORT Exam: Resting ECG Reason for Exam: QTc prolonging medications Patient Location: E HR:59 bpm ECG Measurements Heart Rate 59 AXIS MN 144 P 52 QRSd 73 QRS 83 QT 391 T 50 QTc 389 Conclusion Sinus bradycardia...rate< 60 Normal axis, normal intervals. minor changes noted from previous. No STEMI
[2023-04-10] MEDS: OLANZapine 10 MG TAB PO (03:39)
--- NOTE | 2023-04-10 08:43 | NUR.NOTE ---
Nursing Note: patient asked CPSO to get nurse. Patient naked walking around room said I need my this nurse offered to call after asking what his phone number was patient stated I don't need your help. Why are you holding me here This RN explained to patient that she is in the ED for safety. After 3mins CPSO reported patient told her she needed a nurse because she was bleeding. This RN went in to room asked patient where she was bleeding patient responded I don't need you i need to leave here. You are holding me here because I am blackThis nurse reminded pateint that she is here in the ED for safety. No bleeding noted. CPSO continues to be at the bedside.
--- NOTE | 2023-04-10 09:38 | W.EDPROG ---
Date of service: 04/10/23 Time of Service: 08:00 Medical Decision Making 0800-assumed care of patient. Patient pending psychiatric admission and EE certification due to severe delusions and elopement last night. At this time patient resting in bed no complaints 0845-patient started become agitated and upset. She is continuing to refuse wearing close, and will not take any medications. We are still pending urinalysis and EKG given that patient will not cooperate. 1000-patient continued to become agitated. Nurse was requesting medication which patient did have as needed Zyprexa. Did up Ativan to 2 mg. 1025-patient still continues to refuse any treatment or medication. 1035-willing to reassess patient myself. Patient is now dressed in paper scrubs but is still refusing to take medication. Patient is no longer yelling and does not seem agitated. At this time we will continue to monitor as I do not feel that patient meets qualifications for chemical restraints or physical restraints. 1320-patient calmly sitting on bed in room, refusing to have lunch but has not been acting out or causing any disruption. We will continue to monitor Sign Out Sign Out Data: Sign Out Comment: Patient pending urinalysis and psychiatric bed placement otherwise patient is medically clear and I do not feel that findings of urinalysis are a potential cause for her delusions. Last updated by Cosme Mata NP at 04/09/23 15:35 Sign Out Comment: 37yo F hx of prior psychosis presented with acute psychosis, delusions, reportedly walking naked down the road. Medically cleared, EE paperwork sent. Attempted to elope overnight; met by security and agreed to return to department, took 10mg PO zyprexa at that time. No further events. Ordered standing zyprexa PO BID. Pending 2nd cert, EKG (now on standing QT prolonging medication), and UA. Last updated by Greta Moore MD at 04/10/23 07:23 Sign Out Comment: Patient pending psychiatric bed placement, has been in the ED. We are still pending a urinalysis and EKG. Last updated by Cosme Mata NP at 04/10/23 15:41 Discharge Plan Discharge Details Chief Complaint: PsychEval Clinical Impression: Delusions Primary Care Provider: Otilia Rolon ED Provider: Cosme Mata Home Meds and New Rx's Prescriptions: No Action No Known Home Meds
--- NOTE | 2023-04-10 10:01 | NUR.NOTE ---
Nursing Note: Report from Ana RN; assumed care of patient at this time.
--- NOTE | 2023-04-10 10:23 | CMSP_ITS ---
Date of service: 04/10/23 Time of Service: 10:24 Care Management Safety Plan Status Status: Involuntary Reason for Wait Reason for Wait: Inpatient Admission Safety Plan Safety Plan: INVOLUNTARY FOR INPATIENT PSYCHIATRIC STABILIZATION. Second certification passed this morning at 8:45am. CM reviewed care plan with Soumya Galindo, [facility], as well as leslye Wolf RN (primary RN not available, but did review plan with Soumya). Referrals are pending; [facility] calling hospitals for updates. CM will continue to follow. Safety plan has been established to meet the needs of the patient, and consideration of the care team, to adhere to patient goals, identify restrictions based on behavioral status, address nutrition, and determine a llowed personal belongings, tools for hygiene and personal care. Determine level of activity including ambulation, level of supervision, visitors, and determine privileges based on behaviors and level of engagement by pt. SAFETY PLAN: 1. Will remain on SI/HI precautions. In Paper Clothes (pt currently refusing clothes; naked) 2. Will remain in room under direct supervision of one-on-one staff at all times provided by CPSO; ZHEN, HOLLOCK MAKER style advisor. 3. May have paper cups, plates, finger foods as well as a cardboard spoon 4. Follow [facility] Management of the Admitted Behavioral Health Patient policy. 5. Comfort bath system only. 6. No personal belongings 7. Visitors: No visitors at this time. 8. Activities: soft cart items, at RN discretion. 9. ?Bathroom privileges with supervision 10. Phone: None at this time 11. Due to INVOLUNTARY status, patient is being held at [facility] by the Department of Mental Health (DM) until 2nd certification by [facility] Psychiatrist can be performed (within 24 hours). Staff will provide de-escalation support (CPI) as needed. If patient wishes to leave [facility], staff will contact [facility] Crisis Screener ([phone]) and On-Call Bark Grinder ([phone]) as soon as possible. In the event of elopement, notify [place] Police ([phone]). Patient is currently involuntarily at [facility]. [facility] Frontline Customer Account Executive will continue seeking placement. Please contact the Social Media Editor Bark Grinder ([phone]) for any needed changes to Safety Plan. Safety plan has been provided to interdepartmental care team. Patient will be transported by manager field services at time of discharge.
--- NOTE | 2023-04-10 10:23 | PDOC.CMSAFE ---
Date of service: 04/10/23 Time of Service: 10:24 Care Management Safety Plan Status Status: Involuntary Reason for Wait Reason for Wait: Inpatient Admission Safety Plan Safety Plan: INVOLUNTARY FOR INPATIENT PSYCHIATRIC STABILIZATION. Second certification passed this morning at 8:45am. CM reviewed care plan with Soumya Galindo, [facility], as well as leslye Wolf RN (primary RN not available, but did review plan with Soumya). Referrals are pending; [facility] calling hospitals for updates. CM will continue to follow. Safety plan has been established to meet the needs of the patient, and consideration of the care team, to adhere to patient goals, identify restrictions based on behavioral status, address nutrition, and determine allowed personal belongings, tools for hygiene and personal care. Determine level of activity including ambulation, level of supervision, visitors, and determine privileges based on behaviors and level of engagement by pt. SAFETY PLAN: 1. Will remain on SI/HI precautions. In Paper Clothes (pt currently refusing clothes; naked) 2. Will remain in room under direct supervision of one-on-one staff at all times provided by CPSO; ZHEN, PERSONNEL OFFICER foundation drill operator helper. 3. May have paper cups, plates, finger foods as well as a cardboard spoon 4. Follow [facility] Management of the Admitted Behavioral Health Patient policy. 5. Comfort bath system only. 6. No personal belongings 7. Visitors: No visitors at this time. 8. Activities: soft cart items, at RN discretion. 9. ?Bathroom privileges with supervision 10. Phone: None at this time 11. Due to INVOLUNTARY status, patient is being held at [facility] by the Department of Mental Health (DM) until 2nd certification by [facility] Psychiatrist can be performed (within 24 hours). Staff will provide de-escalation support (CPI) as needed. If patient wishes to leave [facility], staff will contact [facility] Crisis Screener ([phone]) and On-Call Tracer Lathe Set Up Operator ([phone]) as soon as possible. In the event of elopement, notify [place] [employer] Police ([phone]). Patient is currently involuntarily at [facility]. [facility] Frontline Educational Technologist will continue seeking placement. Please contact the [employer] Advanced Operator Tracer Lathe Set Up Operator ([phone]) for any needed changes to Safety Plan. Safety plan has been provided to interdepartmental care team. Patient will be transported by traffic counter at time of discharge.
--- NOTE | 2023-04-10 10:27 | NUR.NOTE ---
Nursing Note: Patient refused PO medications. Any attempts to re-direct unsuccessful. Patient highly agitated, pacing in the room, unclothed. Awaiting plan of care from provider.
--- NOTE | 2023-04-10 10:29 | PDOC.CMPRO ---
Date of service: 04/10/23 Time of Service: 10:29 Care Management Progress Note Progress Note Text Progress Note Text: S/O: CM checked in with ED staff this morning regarding Ronit. Staff reported that she is now involuntary, as she attempted to elope last night around 3:30am. [facility] attempted to meet with Ronit, with little engagement. Ronit has reportedly been delusional, stating that she is Jeniffer Villarreal, and that demons are trying to attack her. Prior to her presentation in the ED, she was reportedly running down the road naked in traffic. A second certification was completed this morning at 8:45 am, which passed. She will be held at [facility] until an inpatient psychiatric bed becomes available. CM provided a safety plan and reviewed it with ARON Dooley, and Maryann, ED charge hand. Primary RN was not availlable at that time, but she did review the plan with ARON Dooley. CM will continue to follow, and will be in contact with [facility] for any updates. A: Ronit is a 37 year old female being held involuntarily in the ED, awaiting inpatient psychiatric stabilization. P: Ronit is being held involuntarily by the [facility]. [facility], the designated agency, will meet with Ronit twice a day until inpatient psychiatric placement is found. She will be transported securely, coordinated by [facility], once a bed becomes available. CM will continue to follow.
--- NOTE | 2023-04-10 11:28 | NUR.NOTE ---
Nursing Note: Spoke with Zakiya at [facility] admissions; she reports they are looking for updated nursing notes with oral intake included as patient has been refusing food/drink. They are also awaiting 2nd cert. Admissions will review chart again tomorrow per Zakiya.
--- NOTE | 2023-04-10 16:01 | W.EDPROG ---
Date of service: 04/10/23 Time of Service: 16:02 Medical Decision Making Care assumed from provider (Petros Mata, KAVITHA) Please see their initial HPI, PE, and documentation. Discussed patient details and case and pending workup and disposition. Patient is hemodynamically stable. At the time of signout there is a sitter at bedside, patient is up to the bathroom to give a urine sample. We are also waiting for EKG. Juan Carlos did Just call and inquire about urinalysis. Pending placement. Patient is EE'd at this time. Urinalysis shows signs of dehydration, urine protein, ketones, moderate bilirubin negative for leukocytes nitrites or bacteria however there is squamous contamination at this time. According to report patient has decreased appetite today. UDS is pending at this time. Negative . 1745: Spoke with family with JANNIE who is calling for a reevaluation. She is requesting to do a Zoom meeting with the patient if possible. Discussed urine results with her and secretary bookkeeper faxed labs to Juan Carlos. 1742: Soumya FORD with JANNIE is on Zoom for re-eval. [employer] at , patient eating and drinking, is calm and cooperative at this time. 1837: Spoke again with Soumya with JANNIE, Maryann RN spoke with patients Ex Father in law, he is requesting to speak with her, at this time if patient wants to speak with Stevie will ok for a phone call, unless it becomes a problem. JANNIE will re-eval in am. 2124: Patient sleeping, is requesting a female nurse, she is refusing Olanzapine or any medications, she is calm and cooperative at his time. Will consult with Hospitalist for admission, pending placement. 2135: According to Dr. Montanez we currently do not admit EE'd patients, 2300: Patient care to be signed out to ED provider Dr. Mandel. At this time patient resting with Safety observer at , in line of sight at nurses station, has refused any meds for the last 8-12 hours. She has eaten and drank fluids today and is currently awaiting involuntary psychiatric placement. She has otherwise remained calm and cooperative. Medical Records Medical records reviewed: Yes I reviewed the patient's medical records. Medical records narrative: Uterine leiomyoma myoma surgical history includes myomectomy, PTSD delusions chronic neck and back pain. Lab Data Lab results reviewed: Yes I reviewed the patient's lab results. Labs: Laboratory Tests Range/Units 04/09/23 04/09/23 04/09/23 13:50 13:50 13:50 WBC (4.4-10.8) 10^3/uL 6.07 RBC (3.93-5.22) 10^6/uL 4.34 Hgb (11.2-15.7) g/dL 13.2 Hct (36.0-46.0) % 37.7 MCV (80-95) fL 87 MCH (27.0-33.0) pg 30.4 MCHC (32.0-36.0) % 35.0 RDW (11.7-14.6) % 11.3 L Plt Count (130-400) 10^3/uL 272 MPV (8.0-11.0) fL 9.7 Immature Gran % 0.3 Neutrophils % 61.2 Lymphocytes % 25.0 Monocytes % 13.0 Eosinophils % 0.2 Basophils % 0.3 Nucleated RBC % (0.0-0.3) % 0.0 Absolute Neutrophils (1.2-6.7) 10^3/uL 3.71 Absolute Lymphocytes (1.2-3.4) 10^3/uL 1.52 Absolute Monocytes (0.1-0.8) 10^3/uL 0.79 Absolute Eosinophils (0.0-0.7) 10^3/uL 0.01 Absolute Basophils (0.0-0.2) 10^3/uL 0.02 Sodium (136-145) mmol/L 141 Potassium (3.5-5.1) mmol/L 3.7 Chloride (98-107) mmol/L 101 Carbon Dioxide (21.0-32.0) mmol/L 26.1 Anion Gap (3-11) mmol/L 13.9 H BUN (7-18) mg/dL 12 Creatinine (0.55-1.02) mg/dL 0.8 Est GFR (CKD-EPI 2020) (mL/min/1.73m2) 98.48 Glucose (74-106) mg/dL 100 Calcium (8.5-10.1) mg/dL 9.5 Total Bilirubin (0.2-1.0) mg/dL 1.5 H AST (15-37) U/L 21 ALT (14-59) U/L 24 Alkaline Phosphatase (46-116) U/L 56 Total Protein (6.4-8.2) g/dL 8.6 H Albumin (3.4-5.0) g/dL 4.6 TSH (0.36-3.74) uIU/mL 1.35 Salicylates (<2.8) mg/dL < 2.8 Acetaminophen (10-30) ug/mL < 2 Ethyl Alcohol (<10) mg/dL < 3.0 Sign Out Sign Out Data: Sign Out Comment: Patient pending urinalysis and psychiatric bed placement otherwise patient is medically clear and I do not feel that findings of urinalysis are a potential cause for her delusions. Last updated by Cosme Mata NP at 04/09/23 15:35 Sign Out Comment: 37yo F hx of prior psychosis presented with acute psychosis, delusions, reportedly walking naked down the road. Medically cleared, EE paperwork sent. Attempted to elope overnight; met by security and agreed to return to department, took 10mg PO zyprexa at that time. No further events. Ordered standing zyprexa PO BID. Pending 2nd cert, EKG (now on standing QT prolonging medication), and UA. Last updated by Greta Moore MD at 04/10/23 07:23 Sign Out Comment: Patient pending psychiatric bed placement, has been in the ED. We are still pending a urinalysis and EKG. Last updated by Cosme Mata NP at 04/10/23 15:41 Discharge Plan Discharge Details Chief Complaint: PsychEval Clinical Impression: Delusions Primary Care Provider: Otilia Rolon ED Provider: Natalie Baron Home Meds and New Rx's Prescriptions: No Action No Known Home Meds
[2023-04-10 16:11] LABS: Bilirubin Moderate (Negative); Blood Small (Negative); Clarity Clear (Clear); Glucose Negative (Negative); Ketones 80 mg/dL (Negative); Leukocyte Esterase Negative (Negative); Nitrite Negative (Negative); Specific Gravity >= 1.030 (1.005-1.025); pH 5.5 (5-8)
[2023-04-10 16:21] LABS: Bacteria Rare HPF (Negative); C & S Indicated? No; Casts 0-2 Hyaline LPF (Negative); Crystals Negative HPF (Negative); Epithelial Cells Rare HPF (Negative); Mucus Moderate (Negative); RBC 0-2 HPF (0-2); WBC Negative HPF (0-5)
[2023-04-10 16:26] LABS: *AMPHETAMINES SCREEN URINE Negative (Negative); *BARBITURATES SCREEN URINE Negative (Negative); *BENZODIAZEPINES SCREEN URINE Negative (Negative); Cannabinoids THC Positive (Negative); Cocaine Screen,Urine Negative (Negative); METHADONE URINE SCREEN Negative (Negative); OPIATES URINE SCREEN Negative (Negative)
[2023-04-10 16:27] LABS: Tricyclic Antidepressants Negative (Negative)
--- NOTE | 2023-04-10 18:31 | NUR.NOTE ---
Nursing Note: Father in law called Stevie Torres. He received a call from the police stating PT was brought to ER. Stevie states that PT has a psychiatric history but nothing this severe. He stated that animal control has her dog and cat and they are safe. Once she is able to speak to them he would like her to call him. Phone number [phone]. PT was to his son who is incarcerated. He her while in halfway. They still communicate.
--- NOTE | 2023-04-10 19:17 | NUR.NOTE ---
Nursing Note: Report to liliana bowers
[2023-04-10 23:16] VITALS: BP 104/70; PULSE 79; TEMP 36.7; O2SAT 98
--- NOTE | 2023-04-10 23:31 | W.EDPROG ---
Date of service: 04/10/23 Time of Service: 15:30 Narrative I have received signout. I have seen and examined the patient. I have offered her something to sleep but she declined. Sign Out Sign Out Data: Sign Out Comment: Patient pending urinalysis and psychiatric bed placement otherwise patient is medically clear and I do not feel that findings of urinalysis are a potential cause for her delusions. Last updated by Cosme Mata NP at 04/09/23 15:35 Sign Out Comment: 37yo F hx of prior psychosis presented with acute psychosis, delusions, reportedly walking naked down the road. Medically cleared, EE paperwork sent. Attempted to elope overnight; met by security and agreed to return to department, took 10mg PO zyprexa at that time. No further events. Ordered standing zyprexa PO BID. Pending 2nd cert, EKG (now on standing QT prolonging medication), and UA. Last updated by Greta Moore MD at 04/10/23 07:23 Sign Out Comment: Patient pending psychiatric bed placement, has been in the ED. We are still pending a urinalysis and EKG. Last updated by Cosme Mata NP at 04/10/23 15:41 Sign Out Comment: 37 y/o female here after psychotic delusions, consisting of believing she is Jeniffer Villarreal and that she is speaking with Raf and seeing [place] and demons. She did attempt to elope overnight and was brought back into department by security. She is on emergency evaluation hold at this time. Pending inpatient psychiatric admission and placement. JANNIE will re-evaluate in am. UA shows some mild dehydration, and EKG QT WNL. She is requesting female only staff. Last updated by Natalie Baron NP at 04/10/23 23:10 Discharge Plan Discharge Details Chief Complaint: PsychEval Clinical Impression: Delusions Primary Care Provider: Otilia Rolon ED Provider: Samia Mandel Home Meds and New Rx's Prescriptions: No Action No Known Home Meds
--- NOTE | 2023-04-11 07:38 | W.EDPROG ---
Date of service: 04/10/23 Time of Service: 20:00 Medical Decision Making ND patient awaiting inpatient psychiatric treatment. no behavioral issues, refusing to take zyprexa today. mental health re-evaluation, please see note. plan to provide shower and bible. medically remains stable, eating today. Narrative The patient tells me she slept well last night. She is awaiting breakfast. No complaints at this time. Sign Out Sign Out Data: Sign Out Comment: Patient pending urinalysis and psychiatric bed placement otherwise patient is medically clear and I do not feel that findings of urinalysis are a potential cause for her delusions. Last updated by Cosme Mata NP at 04/09/23 15:35 Sign Out Comment: 37yo F hx of prior psychosis presented with acute psychosis, delusions, reportedly walking naked down the road. Medically cleared, EE paperwork sent. Attempted to elope overnight; met by security and agreed to return to department, took 10mg PO zyprexa at that time. No further events. Ordered standing zyprexa PO BID. Pending 2nd cert, EKG (now on standing QT prolonging medication), and UA. Last updated by Greta Moore MD at 04/10/23 07:23 Sign Out Comment: Patient pending psychiatric bed placement, has been in the ED. We are still pending a urinalysis and EKG. Last updated by Cosme Mata NP at 04/10/23 15:41 Sign Out Comment: 37 y/o female here after psychotic delusions, consisting of believing she is Jeniffer Villarreal and that she is speaking with Raf and seeing [place] and demons. She did attempt to elope overnight and was brought back into department by security. She is on emergency evaluation hold at this time. Pending inpatient psychiatric admission and placement. JANNIE will re-evaluate in am. UA shows some mild dehydration, and EKG QT WNL. She is requesting female only staff. Last updated by Natalie Baron NP at 04/10/23 23:10 Sign Out Comment: The patient is psychotic and delusional. She has been EE'd after she fled from the ER naked. She had a good night and has been cooperative. She is still awaiting placement. Last updated by Samia Mandel MD at 04/11/23 08:31 Sign Out Comment: Patient remains psychotic and delusional is, EEG, patient waiting psychiatric bed placement. Last updated by Cosme Mata NP at 04/11/23 15:48 Sign Out Comment: no behavioral issues, refusing zyprexa, took shower tonight, wants bible, awaiting inpatient psyche admission. on EE now but possible will tomorrow. requests female staff. Last updated by Joselyn Strong NP at 04/11/23 23:00 Sign Out Comment: EE, delusions, hallucinations; calm overnight; awaiting placement Last updated by Luis Vyas MD at 04/12/23 07:24 Discharge Plan Discharge Details Chief Complaint: PsychEval Clinical Impression: Delusions Primary Care Provider: Otilia Rolon ED Provider: Greta Moore Home Meds and New Rx's Prescriptions: No Action No Known Home Meds
[2023-04-11 10:12] VITALS: BP 101/67; RESP 16; TEMP 36.5; O2SAT 98
--- NOTE | 2023-04-11 15:45 | ED.PROG_ITS ---
Date of service: 04/11/23 Time of Service: 08:00 Medical Decision Making Please see previous documentation for patient's initial presentation and care rendered up to this point. Patient signed out to me by Dr. Mandel. Patient was calm and cooperative overnight. Did start eating food and allowed for urinalysis and EKG which were nonemergent. Patient's urine tox was positive for THC otherwise negative. Patient has no prolonged QT. Patient resting quietly in bed and not having any significant other change beyond having slightly more cooperation. Patient still does show signs of delusions. 1400-patient remains in stable condition with no change in condition, no verbal outburst, patient not wanting to interact with male providers but is still leery of female nursing staff with continued slight and subtle signs of delusion. Still agree with plan to have patient admitted for emergency psychiatric e valuation given high risk of her delusions and her previous action upon them. 1550-patient signed out to Joselyn Strong pending psychiatric bed availability. Lab Data Lab results reviewed: Yes I reviewed the patient's lab results. Sign Out Sign Out Data: Sign Out Comment: Patient pending urinalysis and psychiatric bed placement otherwise patient is medically clear and I do not feel that findings of urinalysis are a potential cause for her delusions. Last updated by Cosme Mata NP at 04/09/23 15:35 Sign Out Comment: 37yo F hx of prior psychosis presented with acute psychosis, delusions, reportedly walking naked down the road. Medically cleared, EE paperwork sent. Attempted to elope overnight; met by security and agreed to return to department, took 10mg PO zyprexa at that time. No further events. Ordered standing zyprexa PO BID. Pending 2nd cert, EKG (now on standing QT prolonging medication), and UA. Last updated by Greta Moore MD at 04/10/23 07:23 Sign Out Comment: Patient pending psychiatric bed placement, has been in the ED. We are still pending a urinalysis and EKG. Last updated by Cosme Mata NP at 04/10/23 15:41 Sign Out Comment: 37 y/o female here after psychotic delusions, consisting of believing she is Jeniffer Villarreal and that she is speaking with Raf and seeing [place] and demons. She did attempt to elope overnight and was brought back into department by security. She is on emergency evaluation hold at this time. Pending inpatient psychiatric admission and placement. JANNIE will re-evaluate in am. UA shows some mild dehydration, and EKG QT WNL. She is requesting female only staff. Last updated by Natalie Baron NP at 04/10/23 23:10 Sign Out Comment: The patient is psychotic and delusional. She has been EE'd after she fled from the ER naked. She had a good night and has been cooperative. She is still awaiting placement. Last updated by Samia Mandel MD at 04/11/23 08:31 Sign Out Comment: Patient remains psychotic and delusional is, EEG, patient waiting psychiatric bed placement. Last updated by Cosme Mata NP at 04/11/23 15:48 Discharge Plan Discharge Details Chief Complaint: PsychEval Clinical Impression: Delusions Primary Care Provider: Otilia Rolon ED Provider: Cosme Mata Home Meds and New Rx's Prescriptions: No Action No Known Home Meds
--- NOTE | 2023-04-11 21:38 | NUR.NOTE ---
Nursing Note: Report from MADYSON Black. Assumed care of patient.
--- NOTE | 2023-04-12 07:33 | ED.PROG_ITS ---
Date of service: 04/12/23 Time of Service: 07:33 Medical Decision Making This patient was signed out to me. Please see previous notes for H&P and initial eval. In brief, 37yo F with hx of psychotic disorder presenting with acute psychosis. Has been declining zyprexa. No acute events overnight. Medically cleared; continues to await psych placement. Reevaluted by ALBERTO WANG and no longer felt to meet involuntary criteria. I met with Ms. Torres who today is calm, cooperative, states she feels safe. Denies SI/HI. Continues to report being under spiritual attack but that she has gotten through it. Mood fine, affect congruent. Speech soft with normal rate, rhythm and tone. Linear and goal directed. Does not appear to be responding to internal stimuli. I offered to proceed with voluntary inpatient placement or prescribe zyprexa, both of which she declined. She continues to exhibit delusions and psychosis, however I no longer have any indication that she is an acute danger to herself or others. Discharged home; discharge instructions including return precautions were reviewed with patient who verbalized understanding. Alll questions were answered and they are in full agreement with the plan. Sign Out Sign Out Data: Sign Out Comment: Patient pending urinalysis and psychiatric bed placement otherwise patient is medically clear and I do not feel that findings of urinalysis are a potential cause for her delusions. Last updated by Cosme Mata NP at 04/09/23 15:35 Sign Out Comment: 37yo F hx of prior psychosis presented with acute psychosis, delusions, reportedly walking naked down the road. Medically cleared, EE paperwork sent. Attempted to elope overnight; met by security and agreed to return to department, took 10mg PO zyprexa at that time. No further events. Ordered standing zyprexa PO BID. Pending 2nd cert, EKG (now on standing QT prolonging medication), and UA. Last updated by Greta Moore MD at 04/10/23 07:23 Sign Out Comment: Patient pending psychiatric bed placement, has been in the ED. We are still pending a urinalysis and EKG. Last updated by Cosme Mata NP at 04/10/23 15:41 Sign Out Comment: 37 y/o female here after psychotic delusions, consisting of believing she is Jeniffer Villarreal and that she is speaking with Raf and seeing [place] and demons. She did attempt to elope overnight and was brought back into department by security. She is on emergency evaluation hold at this time. Pending inpatient psychiatric admission and placement. JANNIE will re-evaluate in am. UA shows some mild dehydration, and EKG QT WNL. She is requesting female only staff. Last updated by Natalie Baron NP at 04/10/23 23:10 Sign Out Comment: The patient is psychotic and delusional. She has been EE'd after she fled from the ER naked. She had a good night and has been cooperative. She is still awaiting placement. Last updated by Samia Mandel MD at 04/11/23 08:31 Sign Out Comment: Patient remains psychotic and delusional is, EEG, patient waiting psychiatric bed placement. Last updated by Cosme Mata NP at 04/11/23 15:48 Sign Out Comment: no behavioral issues, refusing zyprexa, took shower tonight, wants bible, awaiting inpatient psyche admission. on EE now but possible will tomorrow. requests female staff. Last updated by Joselyn Strong NP at 04/11/23 23:00 Sign Out Comment: EE, delusions, hallucinations; calm overnight; awaiting placement Last updated by Luis Vyas MD at 04/12/23 07:24 Discharge Plan Disposition Patient Disposition: Home Condition: Improving Discharge Details Chief Complaint: PsychEval Clinical Impression: Delusions Primary Care Provider: Otilia Rolon ED Provider: Greta Moore Home Meds and New Rx's Prescriptions: No Action No Known Home Meds Discharge Instructions Instructions: Psychotic Disorder (ED) Additional Instructions: Call your primary care doctor today to schedule an appointment to follow up on your visit here. Return to the emergency department if you would like psychiatric treatment, or if you have any other concerns. Referrals: Otilia Rolon NP [Primary Care Provider] -
--- NOTE | 2023-04-12 08:16 | NUR.NOTE ---
Nursing Note: Pt refused 0830 zyprexa stating I do not take any medication. She is appropriate with staff at this time. Thanked me for not making her taking it and is pleasant. Will continue to monitor behaviors.
--- NOTE | 2023-04-12 11:46 | CMPROGNOTE_ITS ---
Date of service: 04/12/23 Time of Service: 11:46 Care Management Progress Note Progress Note Text Progress Note Text: Ronit will be discharged home today, per [facility] crisis screener Natacha Yeh, as she no longer meets criteria for admission.
--- NOTE | 2023-04-12 11:46 | PDOC.CMPRO ---
Date of service: 04/12/23 Time of Service: 11:46 Care Management Progress Note Progress Note Text Progress Note Text: Ronit will be discharged home today, per [facility] crisis screener Natacha Yeh, as she no longer meets criteria for admission.
[2023-04-12 12:02] VITALS: BP 107/68; PULSE 70; RESP 16; O2SAT 98
--- NOTE | 2023-04-12 14:11 | MHPN_ITS ---
Date of service: 04/11/23 Time of Service: 14:11 Mental Health Emergency Note Release [facility] release signed:: Yes Reason for Visit The client has been waiting at [facility] on EE status since 04.09.23. This is her second reassessment for the day and is completed via zoom. In the last 2 weeks has the pt presented for ES prior to today?: Unknown Impression The client presents via zoom calm and clear. She makes good eye contact and is insightful about why she is at the ED. The client continues to believe she is the reincarnate of Jeniffer Villarreal and that she was experiencing a spiritual warfare with her neighbors. The client is denying SI and HI and denied NSSI. She reported she is happy to be alive. She stated you all thought I was mental and kept me here. My life is rooted in the life of Raf Denis. Rfa is from [place]. She stated that she is God the mother God. She believes the neighbors are witches and using sex magic on her by use of his white girlfriend. She believes that the SOV ruined her marriage, family and imprisoned her unjustifiably. THe provider reported that she is taking Zyprexa intermittently and this may be helping. Plan/Disposition Recommended Disposition: Hospitalization facilities contacted. Plan: The client will remain at [facility] for the evening at least due to lack of resources to have her set up for follow up. She is presenting more clear tonight and may not meet criteria for an involuntary hold come the morning. Reports/communication Outcome discussed with: ED/Personnel
--- NOTE | 2023-04-12 15:11 | PDOC.MHPN2 ---
Date of service: 04/12/23 Time of Service: 15:11 PHQ-9 Over the last 2 weeks, how often have you been bothered by any of the following problems? 1. Little interest or pleasure in doing things: not at all 2. Feeling down, depressed, or hopeless: not at all 3. Trouble falling or staying asleep, or sleeping too much: several days 4. Feeling tired or having little energy: not at all 5. Poor appetite or overeating: not at all 6. Feeling bad about yourself - or that you are a failure or have let yourself and your family down: not at all 7. Trouble concentrating on things, such as reading the newspaper or watching television: not at all 8. Moving or speaking so slowly that other people could have noticed? - Or the opposite - being so fidgety or restless that you have been moving around a lot more than usual: not at all 9. Thoughts that you would be better off or of hurting yourself in some way: not at all Total score: 1 If you checked off any problems, how difficult have these problems made it for you to do your work, take care of things at home, or get along with other people?: not difficult at all Source: Developed by Drs. Jaspal Torrez, Debra Irby, Ilan Yoo and colleagues, with an educational rozina from [employer]. Suicide Severity Rate CSSRS2 Have you been thinking about how you might do this?: No Have you had these thoughts and had some intention of acting on them?: No CSSRS3 Have you ever done anything, started to do anything or prepared to do anything to end your life?: No Screening Score Total Score: 0 Screening: Negative Mental Health Emergency Note Release [facility] release signed:: Yes Reason for Visit The client has been on EE status since 04.09.23. Her EE was certified on 04.10.23. The client is being assessed today face to face. In the last 2 weeks has the pt presented for ES prior to today?: Unknown Impression The client presents today sitting on her bed drinking coffee. She has full understanding of the reasons she was brought to the hospital. She understands that running naked through the town was not safe however, still stands firm on her spiritual attack. She presents calm, organized and insightful to the events that have taken place for her. 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 She reported that she enjoys teaching self-discipline, and Self-control. 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 The client identified her history of being diagnosed with PTSD and stated that she treats that through her spiritual beliefs not through medications. The client admitted that when she was given oral Zyprexa on Wednesday she threw it out and didn't take it. At this time, the client is not meeting criteria for an EE and dose not wish to move forward with a hospital referral. Resources Reosurces reviewed and given:: 988 and [facility] Plan/Disposition Recommended Disposition: [facility] Services [facility] Services: Other and Community resources. Plan: The client was given information on [facility] and that they may be able to assist her with her employment. In addition, the client was made aware that her landlord or property maintenance technician has her dog and offered ot care for it while she was in treatment. the client agreed to a referral for case management. [facility] and all other hospitals were made aware the client is being discharged home on a safety plan. Intake was completed. Person reported agreement to plan: Yes Reports/communication Outcome discussed with: ED/Personnel
== END 2023-04-12 12:04 | disposition home or self-care (01) ==
PROVIDERS: Nurse Practitioner Family; Emergency Provider Student in an Organized Health Care Education/Training Program; PCP Nurse Practitioner Family
DX: F22 Delusional disorders (principal); F20.9 Schizophrenia, unspecified; Z87.891 Personal history of nicotine dependence
CPT/HCPCS: 80053; 80307; 81025; 93005; 99285; 80320; 80329; 81003; 81015; 84443; 85025; 93010

== ENCOUNTER 2023-07-25 12:56 | Emergency (ER) | payer MEDICAID, SELFPAY ==
[2023-07-25 13:03] VITALS: BP 122/69; PULSE 94; RESP 18; TEMP 36.9; O2SAT 98
--- NOTE | 2023-07-25 14:14 | W.ED.GENAD ---
Discharge Plan Disposition Patient Disposition: Home Discharge Details Clinical Impression: Nervousness, Sleep difficulties Primary Care Provider: Otilia Rolon ED Provider: Marquis Navas Home Meds and New Rx's Prescriptions: No Action No Known Home Meds Discharge Instructions Additional Instructions: You are seen in the emergency department for your nervousness about sleep. You were screened by the crisis clinicians. Please return to the emergency department if you do not feel safe at home or if you have any other concerns. Otherwise please follow-up with your primary care provider. Discharge Data Discharge Date/Time-TO BE ENTERED AT DEPARTURE: 07/25/23 16:01 HPI General Date/Time Provider Initiated Documentation: 07/25/23 13:36. HPI Narrative: MDM This is an overall very well-appearing normothermic and not tachycardic 38-year-old female with anxiousness and depression requesting mental health support. Patient is medically cleared. Not meeting involuntary criteria given no suicidal or homicidal ideation. No pressured speech nor flight of ideas to suggest psychosis schizophrenia. No visual nor auditory hallucinations. Patient is requesting a place to rest. I have paged [facility] [employer]. No dysuria no frequency to suggest UTI. No head strike to suggest increased risk for intracranial hemorrhage. Not altered to suggest encephalitis. No neck pain to suggest meningitis. Patient denies routine ethanol so I am not concerned for the possibility of withdrawal. No obvious toxidrome on exam. Will reassess after touching base with [facility] [employer]. 3:20 PM N/ASpoke with Trini Maloney from an [facility] [facility] who will complete assessment on this patient. 4 PM I spoke again with Trini who assessed the patient. Fortunately she did not have any additional offers resources to offer this patient. She reported that patient did not meet criteria for [facility] bed. I met with the patient and explained in the absence of any suicidal homicidal ideation without any medical reasons nor any mental health reasons no indication for ED boarding. Will discharge patient home. I advised that if she does not feel safe at home or if she feels like she might be at increased risk for harming herself that she should return to the emergency department for reassessment. For the moment we will proceed with an empiric trial of expectant outpatient management. Chronic conditions affecting the care of the patient: N/A History obtained from an outside historian: N/A External record review: No [facility] EMR records Medications: N/A Social determinants of health affecting disposition: N/A Management discussed with: [facility] human services Treatment/interventions considered: N/A Response to therapies provided: N/A HPI This is a 38-year-old female arrived to the emergency department via private vehicle in the setting of increased anxiety and depression. Patient reports that she recently lost a family member. She says that she does not feel comfortable being at home. She does not feel suicidal nor homicidal. She has had no visual nor auditory hallucinations. No recent falls or head strikes. No chest pain nausea vomiting dysuria nor frequency. Patient takes no prescription medications. She is on medical marijuana. She denies routine tobacco and illicits. Exam General: Well-appearing in no acute distress speaking in complete sentences. Head: Normocephalic, atraumatic. Eye: Extraocular eye movements intact. No conjunctival injection. No scleral icterus. Ear, nose, mouth, throat: Grossly normal inspection. Normal voice, handling secretions normally. Neck: Trachea midline. Cardiovascular: Well-perfused distal extremities. Respiratory: Nonlabored respiration. Gastrointestinal: Nondistended abdomen. Musculoskeletal: No edema. Moving all 4 extremities spontaneously. Skin: Normal for age and race, grossly normal temperature and turgor. No acute rash. Neurologic: Alert and appropriate, no apparent acute deficits. GCS 15. Psychiatric: Mood and manner are appropriate. Grooming and personal hygiene are appropriate. Calm cooperative. No pressured speech. No flight of ideas. Related Data Home Medications Medication Instructions Recorded Confirmed Unknown [No Known Home Meds] 12/23/22 06/17/23 Allergies Allergy/AdvReac Type Severity Reaction Status Date / Time No Known Allergies Allergy Unverified 04/14/23 10:36 General Stated Complaint: PsychEval ABHIJIT: 2 PFSH All Active Problems (Updated 07/25/23 @ 16:02 by Marquis Navas MD) Sleep difficulties (Acute) Nervousness (Acute) Delusions (Acute) PTSD (post-traumatic stress disorder) (Chronic) Chronic neck and back pain (Chronic) Medical History Uterine leiomyoma Surgical History S/P myomectomy (03/18/21) Family History Mother Asthma Stroke Father No problems noted. Sister No problems noted. Sister Asthma Brother No problems noted. Brother No problems noted. Daughter No problems noted. Maternal Grandfather Heart disease Stroke Maternal Grandmother Heart disease Stroke Paternal Grandfather No problems noted. Paternal Grandmother No problems noted. 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 Caregiver/Support person: No Household members: spouse Housing: apartment Communication Needs: None Do you need help understanding health information?: Never Pets and animals: Yes Pets and animals: cat(s) and dog(s) Sexually active: No Do you think of yourself as: bisexual What is your relationship status?: How often do you talk on the phone with friends or family?: decline to answer How often do you get together with friends or relatives?: decline to answer How often do you attend jewish or lutheran services?: decline to answer Do you belong to any clubs or organized social groups?: no Panel score (0-1 are the most socially isolated patients): 1 What type of physical activity do you participate in: running and yoga Duration: 60-90 minutes/day Frequency: 3-4 times per week Arline/Orthodox: No preference Special arline needs: No Seatbelt use: always Helmet use: Yes Drive intox or ride w/intox road train driver: No Do you feel safe at home: Yes Do you feel safe in your relationship?: Yes Female Reproductive History Menstrual Age of Menarche: 14 Duration of menses: 6-7 days control method: none History History 1 Para 1 Hx # Term Pregnancies 1 Multiple births Hx # Pregnancies Ectopic pregnancies AB induced Hx Number of Living Children 1 AB spontaneous Course Vital Signs Vital signs: Vital Signs Temperature 36.9 C 07/25/23 13:03 Pulse 94 H 07/25/23 13:03 Respiratory Rate 18 07/25/23 13:03 Blood Pressure 122/69 07/25/23 13:03 Pulse Oximetry 98 07/25/23 13:03 Temperature 36.9 C 07/25/23 13:03 Temperature Source Temporal Artery Scan 07/25/23 13:03 Pulse 94 H 07/25/23 13:03 Respiratory Rate 18 07/25/23 13:03 Respiratory Effort Normal 07/25/23 13:06 Blood Pressure 122/69 07/25/23 13:03 Blood Pressure Position Sitting 07/25/23 13:03 Pulse Oximetry 98 07/25/23 13:03 Oxygen Delivery Method Room Air 07/25/23 13:03 Oxygen Flow Rate 0 07/25/23 13:03 Pain Level 0 07/25/23 13:03
--- NOTE | 2023-07-26 01:57 | PDOC.MHCN ---
Date of service: 07/25/23 Time of Service: 15:15 PHQ-9 Over the last 2 weeks, how often have you been bothered by any of the following problems? 1. Little interest or pleasure in doing things: not at all 2. Feeling down, depressed, or hopeless: not at all 3. Trouble falling or staying asleep, or sleeping too much: not at all 4. Feeling tired or having little energy: not at all 5. Poor appetite or overeating: not at all 6. Feeling bad about yourself - or that you are a failure or have let yourself and your family down: not at all 7. Trouble concentrating on things, such as reading the newspaper or watching television: not at all 8. Moving or speaking so slowly that other people could have noticed? - Or the opposite - being so fidgety or restless that you have been moving around a lot more than usual: not at all 9. Thoughts that you would be better off or of hurting yourself in some way: not at all Total score: 0 If you checked off any problems, how difficult have these problems made it for you to do your work, take care of things at home, or get along with other people?: not difficult at all Source: Developed by Drs. Jaspal Torrez, Debra Irby, Ilan Yoo and colleagues, with an educational rozina from [employer]. Suicide Severity Rate CSSRS Have you wished you were or wished you could go to sleep and not wake up?: No Have you actually had any thoughts of killing yourself?: No CSSRS3 Have you ever done anything, started to do anything or prepared to do anything to end your life?: No Screening Score Total Score: 0 Screening: Negative Mental Health Emergency Note Release [facility] release signed:: Yes Reason for Visit In the last 2 weeks has the pt presented for ES prior to today?: No Non Suicidal Self Injury Current: No History: No Safety Risk/Harm to Self or Others Current Ideation to Harm Self or Others: No Risk: Does risk to harm exist?: No Duty to warn indicated: No Asssessment/Mental Status Appearance: Unremarkable Attitude: Cooperative Behavior: Unremarkable Speech: Normal Affect: Normal Mood: Other (tired) Thought process: Unremarkable Hallucinations: No evidence Delusions: No evidence Attention: Unremarkable Perception: Not impaired Orientation: Fully orientated Memory: Intact Insight: Good Judgement: Good Neurovegetative Symptoms Sleep: Decrease (recent within the past few days ) Appetitie: No change Interests: No change Energy: No change Libido: Not applicable Substance Use: Do you use nicotine?: No Have you used substances in the last 7 days?: yes, Alcohol occasionally and client has a medical marijuana card Additional Issues: Assaultive/Threatening Behavior: No Medical Concerns: No Client engaged in active self harm w/weapon: No Threatening to run away: No Child reported abuse/neglect: No Voluntarily presenting for services: Yes Domestic violence is a concern: No Extreme Psychosis or extreme behavior is present: No Impression Client admitted into [facility] ED reported that she wanted to sleep with other people around. Client was not looking for medication to help her sleep at this time, but wanted a quiet room in the emergency department in order to sleep for a 'day or two' per the client's' words. Client did not report any anxiety, depression, HI, or SI during the assessment process. Client reported that she has never thought of hurting herself or others. Client report that she has never engaged in NSSI. Client reported that her was on a retreat till Wednesday. Client reported that she occasionally drink alcohol and has a medical marijuana card. Client reported that she does not take any pharmaceutical drugs at this time. Client reported that she has secured housing and does not need any resources at this time. client reported that she has no intent no plan and has not thought means to cause harm to herself. client reported no change in appetite, energy, or interest but a decrease in sleep due to traveling and her family Plan/Disposition Recommended Disposition: Other (sent home to go sleep and use 988 as needed for support. ). Reports/communication Outcome discussed with: ED/Personnel
== END 2023-07-25 16:01 | disposition home or self-care (01) ==
PROVIDERS: Emergency Provider Emergency Medicine; PCP Nurse Practitioner Family
DX: R45.0 Nervousness (principal); G47.9 Sleep disorder, unspecified; F32.A Depression, unspecified
CPT/HCPCS: 00123; 96127; 99283; 99282

== ENCOUNTER 2023-08-19 15:47 | Emergency (ER) | payer MEDICAID, SELFPAY ==
[2023-08-19 15:52] VITALS: BP 107/81; PULSE 88; RESP 18; TEMP 36.9; O2SAT 99
--- NOTE | 2023-08-19 16:14 | W.ED.GENAD ---
Discharge Plan Discharge Details Chief Complaint: PsychEval Clinical Impression: Delusions Primary Care Provider: Otilia Rolon ED Provider: Ham Cheema Home Meds and New Rx's Prescriptions: No Action No Known Home Meds Medical Decision Making 38-year-old -Honduran female with a past medical history of delusions, PTSD, uterine fibroids which were surgically removed at the [facility], who presents today for psychiatric evaluation. 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 She states that she is a calixto, and she is coming here today because Lucifer is trying to attack me and has been for the last few weeks. He is in my apartment, and he is sending his other demons after me. She did contact mental health advocates, they recommended that she come here for further assessment. She does admit to smoking marijuana, she denies any IV or illicit drug use. She denies any alcohol use. She denies any other complaints at this time. She has been admitted before in the past for this, the most recent time was on 04/09/2023. She states that she does not take any psychiatric medications or any medications in general. No other complaints at this time. She denies any homicidal ideations. She denies an intent for self-harm. Exam demonstrates well-appearing, but somewhat reserved and nervous appearing female. Patient has clear hyperreligiosity, and delusions at this time. After long discussion and establishing rapport with the patient, she agreed to blood work and changing. She also agreed to taking Zyprexa orally. Will give 20 mg of oral Zyprexa here. We will recruit the help of our mental health advocates, monitor closely and reassess. Patient is here voluntarily currently. 8 PM Patient has been medically cleared, laboratory workup stable. Patient has been seen and assessed by mental health, they agree on the benefit for admission. Recommend voluntary admission. We will keep the patient here to have her reassessed in the morning for potential admission placement. Patient will be signed out to my colleague. HPI General Date/Time Provider Initiated Documentation: 08/19/23 15:49. HPI Narrative: 38-year-old -Honduran female with a past medical history of delusions, PTSD, uterine fibroids which were surgically removed at the [facility], who presents today for psychiatric evaluation. 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 She states that she is a calixto, and she is coming here today because Lucifer is trying to attack me and has been for the last few weeks. He is in my apartment, and he is sending his other demons after me. She did contact mental health advocates, they recommended that she come here for further assessment. She does admit to smoking marijuana, she denies any IV or illicit drug use. She denies any alcohol use. She denies any other complaints at this time. She has been admitted before in the past for this, the most recent time was on 04/09/2023. She states that she does not take any psychiatric medications or any medications in general. No other complaints at this time. She denies any homicidal ideations. She denies an intent for self-harm. Related Data Home Medications Medication Instructions Recorded Confirmed Unknown [No Known Home Meds] 12/23/22 06/17/23 Allergies Allergy/AdvReac Type Severity Reaction Status Date / Time No Known Allergies Allergy Unverified 04/14/23 10:36 General Stated Complaint: PsychEval ABHIJIT: 2 Review of Systems All systems reviewed & are unremarkable except as noted in HPI and below PFSH All Active Problems (Updated 08/19/23 @ 20:05 by Ham Cheema DO) Sleep difficulties (Acute) Nervousness (Acute) Delusions (Acute) PTSD (post-traumatic stress disorder) (Chronic) Chronic neck and back pain (Chronic) Medical History Uterine leiomyoma Surgical History S/P myomectomy (03/18/21) Family History Mother Asthma Stroke Father No problems noted. Sister No problems noted. Sister Asthma Brother No problems noted. Brother No problems noted. Daughter No problems noted. Maternal Grandfather Heart disease Stroke Maternal Grandmother Heart disease Stroke Paternal Grandfather No problems noted. Paternal Grandmother No problems noted. 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: no Panel score (0-1 are the most socially isolated patients): 1 What type of physical activity do you participate in: running and yoga Duration: 60-90 minutes/day Frequency: 3-4 times per week Arline/Taoism: No preference Special arline needs: No Seatbelt use: always Helmet use: Yes Drive intox or ride w/intox subway train driver: No Do you feel safe at home: Yes Do you feel safe in your relationship?: Yes Female Reproductive History Menstrual Age of Menarche: 14 Duration of menses: 6-7 days control method: none History History 1 Para 1 Hx # Term Pregnancies 1 Multiple births Hx # Pregnancies Ectopic pregnancies AB induced Hx Number of Living Children 1 AB spontaneous Exam Narrative Exam Narrative: 1.Const: Well-nourished, Well-developed, appearing stated age 2.Eyes: PERRL, no conjunctival injection, and symmetrical lids. 3.ENT: Atraumatic external nose and ears. Moist MM. Neck: Symmetric, trachea midline, No thyromegaly. 4.CVS: +S1/S2, No murmurs or gallops. Peripheral pulses 2+ and equal in all extremities. Brisk capillary refill in all extremities. 5.RESP: Unlabored respiratory effort. Clear to auscultation bilaterally. No wheezes rales or rhonchi 6.GI: Soft, Nontender/Nondistended, No hepatosplenomegaly. No guarding or rebound. 7.MSK: Normocephalic/Atraumatic, Extremities w/o deformity or ttp No cyanosis or clubbing, Normal movement of all extremities 8.Skin: Warm, Dry. No rashes or lesions. 9.Neuro: ambulance driver II-XII grossly intact. Sensation grossly intact, no focal neurologic deficits. 10.Psych: (AAO) x3. Somewhat flat affect. Slightly nervous appearing. Course Vital Signs Vital signs: Vital Signs Temperature 36.9 C 08/19/23 15:52 Pulse 88 08/19/23 15:52 Respiratory Rate 18 08/19/23 15:52 Blood Pressure 107/81 08/19/23 15:52 Pulse Oximetry 99 08/19/23 15:52 Temperature 36.9 C 08/19/23 15:52 Temperature Source Temporal Artery Scan 08/19/23 15:52 Pulse 88 08/19/23 15:52 Respiratory Rate 18 08/19/23 15:52 Blood Pressure 107/81 08/19/23 15:52 Pulse Oximetry 99 08/19/23 15:52 Oxygen Delivery Method Room Air 08/19/23 15:52 Oxygen Flow Rate 0 08/19/23 15:52
[2023-08-19] MEDS: OLANZapine 10 MG TAB 20 MG PO (16:33)
[2023-08-19 17:05] LABS: Abs Immature Grans 0.02 10^3/uL (0.0-0.06); Absolute Basophil Count 0.03 10^3/uL (0.0-0.2); Absolute Eosinophil Count 0.02 10^3/uL (0.0-0.7); Absolute Monocyte Count 0.34 10^3/uL (0.1-0.8); Absolute Neutrophil Count 2.37 10^3/uL (1.2-6.7); Basophils % 0.6; Eosinophils % 0.4; HCT 38.8 % (36.0-46.0); HGB 13.2 g/dL (11.2-15.7); Immature Grans % 0.4; Lymphocytes % 47.3; MCH 30.4 pg (27.0-33.0); MCV 89 fL (80-95); MPV 9.2 fL (8.0-11.0); Monocytes % 6.4; Neutrophils % 44.9; Platelet Count 326 10^3/uL (130-400); RBC 4.34 10^6/uL (3.93-5.22); RDW 11.2 % (11.7-14.6); RDW-SD 36.7 fL; WBC 5.28 10^3/uL (4.4-10.8)
[2023-08-19 17:26] LABS: Acetaminophen < 2 ug/mL (10-30); Salicylate < 2.8 mg/dL (<2.8)
[2023-08-19 17:28] LABS: ALT 33 U/L (14-59); AST 22 U/L (15-37); Albumin 4.2 g/dL (3.4-5.0); Alkaline Phosphatase 50 U/L (46-116); Anion Gap 6.9 mmol/L (3-11); BUN 7 mg/dL (7-18); CO2 31.1 mmol/L (21.0-32.0); CREATININE 0.8 mg/dL (0.55-1.02); Calcium 9.4 mg/dL (8.5-10.1); Chloride 102 mmol/L (98-107); ETHANOL BLOOD < 3.0 mg/dL (<10); Estimated GFR 97.87 (mL/min/1.73m2); Glucose 94 mg/dL (74-106); Sodium 140 mmol/L (136-145); TSH (W/Ref FT4) 1.03 uIU/mL (0.36-3.74); Total Protein 8.5 g/dL (6.4-8.2)
[2023-08-19 18:33] VITALS: BP 117/64; PULSE 74; RESP 16; TEMP 36.6; O2SAT 98
[2023-08-19 19:29] LABS: *AMPHETAMINES SCREEN URINE Negative (Negative); *BARBITURATES SCREEN URINE Negative (Negative); *BENZODIAZEPINES SCREEN URINE Negative (Negative); Cannabinoids THC Negative (Negative); Cocaine Screen,Urine Negative (Negative); METHADONE URINE SCREEN Negative (Negative); OPIATES URINE SCREEN Negative (Negative)
[2023-08-19 19:30] LABS: Tricyclic Antidepressants Negative (Negative)
[2023-08-20 07:49] VITALS: BP 100/59; PULSE 79; RESP 16; TEMP 36.8; O2SAT 99
--- NOTE | 2023-08-20 10:45 | ED.PROG_ITS ---
Date of service: 08/20/23 Time of Service: 10:45 Medical Decision Making Care was signed out by Dr. Field. Patient was noted to be medically screened and clear at time of signout. Patient here with acute psychosis awaiting psychiatric treatment facility placement. Notified that [facility] will accept the patient in transfer. Doc to Doc was offered and declined. Plan will be to transfer to [facility]. Plan discussed with patient who was in agreement. Lab Data Lab results reviewed: Yes I reviewed the patient's lab results. Labs: Laboratory Tests Range/Units 08/19/23 08/19/23 12:00 19:02 WBC (4.4-10.8) 10^3/uL 5.28 RBC (3.93-5.22) 10^6/uL 4.34 Hgb (11.2-15.7) g/dL 13.2 Hct (36.0-46.0) % 38.8 MCV (80-95) fL 89 MCH (27.0-33.0) pg 30.4 MCHC (32.0-36.0) % 34.0 RDW (11.7-14.6) % 11.2 L Plt Count (130-400) 10^3/uL 326 MPV (8.0-11.0) fL 9.2 Immature Gran % 0.4 Neutrophils % 44.9 Lymphocytes % 47.3 Monocytes % 6.4 Eosinophils % 0.4 Basophils % 0.6 Nucleated RBC % (0.0-0.3) % 0.0 Absolute Neutrophils (1.2-6.7) 10^3/uL 2.37 Absolute Lymphocytes (1.2-3.4) 10^3/uL 2.50 Absolute Monocytes (0.1-0.8) 10^3/uL 0.34 Absolute Eosinophils (0.0-0.7) 10^3/uL 0.02 Absolute Basophils (0.0-0.2) 10^3/uL 0.03 Sodium (136-145) mmol/L 140 Potassium (3.5-5.1) mmol/L 4.0 Chloride (98-107) mmol/L 102 Carbon Dioxide (21.0-32.0) mmol/L 31.1 Anion Gap (3-11) mmol/L 6.9 BUN (7-18) mg/dL 7 Creatinine (0.55-1.02) mg/dL 0.8 Est GFR (CKD-EPI 2020) (mL/min/1.73m2) 97.87 Glucose (74-106) mg/dL 94 Calcium (8.5-10.1) mg/dL 9.4 Total Bilirubin (0.2-1.0) mg/dL 1.0 AST (15-37) U/L 22 ALT (14-59) U/L 33 Alkaline Phosphatase (46-116) U/L 50 Total Protein (6.4-8.2) g/dL 8.5 H Albumin (3.4-5.0) g/dL 4.2 TSH (0.36-3.74) uIU/mL 1.03 Salicylates (<2.8) mg/dL < 2.8 Urine Opiates Screen (Negative) Negative Urine Methadone Screen (Negative) Negative Acetaminophen (10-30) ug/mL < 2 Ur Barbiturates Screen (Negative) Negative Ur Tricyclics Screen (Negative) Negative Ur Amphetamines Screen (Negative) Negative U Benzodiazepines Scrn (Negative) Negative Urine Cocaine Screen (Negative) Negative Ur THC Screen (Negative) Negative Ethyl Alcohol (<10) mg/dL < 3.0 Sign Out Sign Out Data: Sign Out Comment: Delusional, delusions of grandeur, believes she is the reincarnated Adeel, here voluntarily, seeking placement. Did take 20 mg of oral Zyprexa. Not on any regular medications. Last updated by Ham Cheema DO at 08/19/23 21:50 Sign Out Comment: Patient who has delusions and is clearly in a state of psychosis who will need to be admitted she received Zyprexa yesterday but appears provider and's been stable but will need to be admitted for psychiatric admission Last updated by Casimiro Field MD at 08/20/23 05:55 Discharge Plan Disposition Patient Disposition: Psychiatric Hospital/Unit Specific Psychiatric Facility: [facility] Condition: Serious Discharge Details Chief Complaint: PsychEval Clinical Impression: Delusions Primary Care Provider: Otilia Rolon ED Provider: Kam Calloway Home Meds and New Rx's Prescriptions: No Action No Known Home Meds
== END 2023-08-20 10:54 ==
PROVIDERS: Student in an Organized Health Care Education/Training Program; Emergency Provider Student in an Organized Health Care Education/Training Program; PCP Nurse Practitioner Family
DX: F29 Unspecified psychosis not due to a substance or known physiological condition (principal); F22 Delusional disorders
CPT/HCPCS: 00123; 80053; 80307; 99285; 80320; 80329; 84443; 85025